=== PATIENT | female | born 1955 | race Caucasian/White ===

== ENCOUNTER 2020-03-28 22:37 | Inpatient (IN) | payer MEDICARE, OTHER, SELFPAY ==
[2020-03-28 22:42] VITALS: BP 126/69; PULSE 119; RESP 16; TEMP 37.7; O2SAT 93; BMI 22.9
[2020-03-29] VITALS (10 sets, daily range): BP systolic 91–114; BP diastolic 35–56; PULSE 73–97; RESP 15–18; TEMP 36.7–38; O2SAT 93–99
--- NOTE | 2020-03-29 03:10 | CT_ITS ---
EXAMINATION: CT ABDOMEN AND PELVIS WITH CONTRAST CLINICAL INFORMATION: Right lower quadrant and right upper quadrant pain. Fever. COMPARISON: None TECHNIQUE: Multidetector volumetric images were obtained from the superior aspect of the liver through the pubic symphysis following administration 85 mL of Omnipaque 350 intravenous contrast. Sagittal and coronal reformatted images were obtained on the technologist's workstation. Oral contrast: No This CT examination was performed using dose optimization techniques as appropriate, variously including the following: *Automated exposure control *Adjustment of mA and/or kV according to patient size (this includes techniques or standardized protocols for targeted exams where dose is matched to indication/reason for exam; i.e. extremities or head) *Use of iterative reconstruction technique DLP: 524 mGy-cm FINDINGS: LUNG BASES: There is bibasilar atelectasis. The visualized cardiac structures are unremarkable. LIVER, GALLBLADDER, AND BILIARY TREE: The liver is normal in size, shape, and attenuation. No focal hepatic lesion or biliary ductal dilatation is present. There are no radiopaque gallstones seen. There is wall thickening, measuring 0.4 cm at portions. There is significant pericholecystic fluid. PANCREAS: Unremarkable. SPLEEN: Unremarkable. ADRENAL GLANDS: Unremarkable. KIDNEYS AND URETERS: The kidneys are normal in size, shape, and attenuation. No hydronephrosis, hydroureter, or calculi seen. No perinephric stranding. There is a left upper pole cyst measuring 1.2 cm. BLADDER: Unremarkable. GASTROINTESTINAL TRACT: The stomach is unremarkable. Normal caliber small bowel. There is no obstruction. No colonic wall thickening or acute inflammatory changes. There is a normal appendix. No free air. Minimal fluid along the right paracolic gutter extending from the region of the gallbladder. ABDOMINAL WALL: Small amount of fluid in the right pelvic region. This could be associated with the canal of N[place]. LYMPH NODES: Normal. VASCULAR: Normal caliber aorta with mild atherosclerotic calcification. Retroaortic left renal vein. PELVIC VISCERA: The uterus is not seen. No adnexal mass. OSSEOUS STRUCTURES: Mild degenerative changes in the spine. No acute or suspicious osseous abnormality. CT/CT abdomen pelvis w con IMPRESSION: Abnormal appearance of the gallbladder. Although there are no radiopaque stones identified. The gallbladder is distended with wall thickening and prominent fluid surrounding. This is suspicious for acute cholecystitis. Normal appendix.
--- NOTE | 2020-03-29 03:15 | ED_ITS ---
HPI - General Adult General Chief complaint: Abdominal Pain Stated complaint: Abdominal pain Time Seen by Provider: 03/29/20 02:59 Source: patient Mode of arrival: ambulatory Limitations: no limitations History of Present Illness HPI narrative: 64-year-old female who presents emergency department for evaluation of right-sided abdominal pain, fever and shaking chills x3 days. Patient states that 3 days prior at around 5:00 p.m. she ate chips to be fine toast. At around 10:00 p.m. she then developed right-sided abdominal pain. She states that the pain is a constant, dull ache which waxes and wanes in intensity and is 10/10 at its worst. She states that she has had decreased appetite and has had associated nausea with no vomiting. The pain does radiate to her back. She states that she has developed fever and shaking chills and she is concerned that she may have a problem with her gallbladder therefore she came to the emergency department for evaluation. She states that her pain is currently 10/10 at its worst. She has a history of GERD but she states that this pain is different than her GERD pain. The patient has a history of hernia repair and SANDRA/BSO secondary to fibroids. Related Data Previous Rx's Medication Instructions Recorded prednisone 10 mg tablet 10 mg PO .COMPLEX #45 tab 01/03/20 Allergies Allergy/AdvReac Type Severity Reaction Status Date / Time acetaminophen [Percocet] Allergy Unknown rash Verified 07/01/17 00:00 oxycodone [Percocet] Allergy Unknown rash Verified 07/01/17 00:00 Review of Systems Review of Systems: Yes all other systems are reviewed and are negative Neurologic: Reports Abnormal speech present [facility] Past Medical History [facility] Narrative: Patient has history of GERD, kidney stones, hernia repair, LANE BSO. She denies tobacco, alcohol and drug use. Social History Social History Alcohol intake: never Smoking Status: Never smoker Use of substances other than those prescribed or required for medical reasons: No Advance Directives: No Physical Exam Vital Signs: Vital Signs: Last Vital Signs Temp 100.4 F 03/29/20 02:58 Pulse 85 03/29/20 05:42 Resp 16 03/29/20 08:00 BP 98/35 L 01/09/21 05:42 Pulse Ox 94 03/29/20 05:42 Body Mass Index 22.9 Const: General: cooperative and healthy appearing Orientation/consciousness: oriented to person and oriented to place Limitations: no limitations HENMT: Head: Yes normal to inspection, Yes normocephalic and Yes atraumatic Ears: external ears normal General nose exam: Normal external nose present Face and sinus: Yes normal facial exam Mouth: Normal oral and palatal mucosa present Throat: Yes posterior oropharynx normal Eyes: Periorbital: periorbital findings normal Eyelids: Yes eyelids normal Conjunctivae: conjunctivae normal Sclerae: sclerae normal Corneas: corneas normal Pupils: Equal, round and reactive pupils present Direct Ophthalmoscopy: normal light reflex Neck: Neck: Yes full ROM, Yes no lymphadenopathy, Yes no meningeal signs, Yes trachea midline and Yes supple Chest: Chest palpation & inspection: normal inspection of the chest and normal palpation of entire chest wall Resp: Effort & Inspection: normal respiratory effort and able to speak in complete sentences Auscultation: clear to auscultation bilaterally Cardio: Rate: regular rate Rhythm: regular rhythm Heart sounds: S1 normal heart sound present, S2 normal heart sound present and no murmurs GI: Inspection: Yes normal to inspection Palpation (GI): Soft to palpation, Tenderness to palpation present (GI) (Moderate to severe) in the RLQ and in the RUQ, Guarding due to palpation present (GI) (Moderate to severe) in the RLQ and in the RUQ, not rigid and No hepatosplenomegaly present : General: Yes no CVA tenderness Back/Spine/Pelvis: Back: no CVA tenderness Cervical Spine: normal cervical lordosis Thoracic/Lumbar Spine: thoracic and lumbar spine normal to inspection Skin: Lesions: no lesions Rashes: no rashes Wounds: no wounds Neuro: General: oriented to person, oriented to place and no meningeal signs Cranial nerves: Yes Equal, round and reactive pupils present Cognition (Neuro): normal cognition Speech: Abnormal speech present Motor exam (neuro): 5/5 motor strength present throughout Extrem: General: Yes normal to inspection and Yes full ROM Psych: Appearance: well kempt Mental Status: mental status grossly normal Speech and movement: Normal speech and movement present Affect: normal affect Attitude: cooperative Thought process: Normal thought process present Thought content: Normal thought content present Course Course Course Narrative: 64-year-old female who presents emergency department for evaluation right-sided abdominal pain x3 days with loss of appetite and fever with chills times 24 hours. Physical examination did reveal a temperature of 100.2? F orally. She has an elevated pulse of 119. She meets SIRS criteria. I did order an abdominal pain workup in septic workup to include CT scan of the abdomen pelvis with IV contrast. The patient will be treated with normal saline 30 cc per kg bolus and Zosyn 3.375 mg IV. 0738: The patient's CT scan revealed dilated gallbladder with gallbladder wall thickening and pericholecystic fluid with no gallstones seen. I did discuss the patient's presentation findings with the physician assistant auto center manager covering the surgical service and he recommended getting an ultrasound. The ultrasound revealed cholelithiasis with gallbladder wall thickening and pericholecystic fluid consistent with acute cholecystitis. I will discuss this finding with the covering surgical group. 0825: I did discuss the patient's presentation with the physician assistant auto center manager covering the surgical group and the patient will be admitted for further treat ment. The admitting attending is Dr. Manning. Medical Decision Making Lab Data Result diagrams: 03/29/20 03:36 03/29/20 03:36 Labs: Lab Results 03/29/20 03/29/20 03/29/20 Range/Units 03:35 03:36 03:36 WBC 15.7 H (4.8-10.8) X10*3/uL RBC 4.67 (4.20-5.50) X10*6/uL Hgb 13.0 (12.0-16.0) g/dl Hct 39.8 (37-47) % MCV 85.2 (80-98) fL MCH 27.8 (27.0-33.0) pg MCHC 32.7 (31.0-35.0) g/dl RDW 13.1 (11.0-16.0) % Plt Count 149 L (160-400) X10*3/uL MPV 11.2 (9.4-12.3) fL Immature Gran % (Auto) 0.5 H (0.0-0.4) % Neut % (Auto) 87.0 H (45-73) % Lymph % (Auto) 5.7 L (20-40) % [place] % (Auto) 6.3 (2-11) % Eos % (Auto) 0.3 (0-4) % Baso % (Auto) 0.2 (0-2) % Lymph # (Auto) 0.9 L (1.2-4.9) X10*3/uL [place] # (Auto) 1.0 (0.1-1.2) X10*3/uL Eos # (Auto) 0.0 (0.0-0.4) X10*3/uL Baso # (Auto) 0.0 (0.0-0.2) X10*3/uL Abs Immat Gran (auto) 0.08 H (0.00-0.03) X10*3/uL Absolute Neuts (auto) 13.7 H (2.0-8.3) X10*3/uL Absolute Nucleated RBC 0.000 (0.0-0.012) X10*3/uL Nucleated RBC % (auto) 0.0 (0.0-0.2) /100WBC Sodium 137 (135-145) mmol/L Potassium 3.4 (3.3-5.1) mmol/l Chloride 101 (96-108) mmol/L Carbon Dioxide 24 (22-29) mmol/L Anion Gap 15 (12-20) BUN 22 H (9-16) mg/dL Creatinine 0.84 (0.5-1.4) mg/dL Estim Creat Clear Calc 59.2 Estimated GFR > 60 Random Glucose 106 (60-115) mg/dL Lactic Acid 0.7 (0.5-2.0) mmol/L Calcium 8.8 (8.4-10.2) mg/dL Total Bilirubin 1.7 H (0.0-1.0) mg/dL Direct Bilirubin 0.9 H (0.0-0.5) mg/dL AST 31 (5-31) U/L ALT 45 H (0-31) U/L Alkaline Phosphatase 144 H (39-117) U/L Total Protein 6.6 (6.5-8.0) g/dL Albumin 3.9 (3.5-5.0) g/dL Lipase 17 (8-78) U/L Urine Color Urine Appearance Urine pH (5.0-8.0) Ur Specific [place] (1.005-1.025) Urine Protein (NEG-TRACE) MG/DL Urine Glucose (UA) (NEG) MG/DL Urine Ketones (NEG) MG/DL Urine Blood (NEG) Urine Nitrite (NEG) Ur Leukocyte Esterase (NEG) Urine RBC (0) /HPF Urine WBC (0-4) /HPF Ur Squamous Epith Cells /LPF Urine Bacteria /LPF Hyaline Casts /LPF Granular Casts /LPF Urine Mucus /LPF 03/29/20 Range/Units 03:36 WBC (4.8-10.8) X10*3/uL RBC (4.20-5.50) X10*6/uL Hgb (12.0-16.0) g/dl Hct (37-47) % MCV (80-98) fL MCH (27.0-33.0) pg MCHC (31.0-35.0) g/dl RDW (11.0-16.0) % Plt Count (160-400) X10*3/uL MPV (9.4-12.3) fL Immature Gran % (Auto) (0.0-0.4) % Neut % (Auto) (45-73) % Lymph % (Auto) (20-40) % [place] % (Auto) (2-11) % Eos % (Auto) (0-4) % Baso % (Auto) (0-2) % Lymph # (Auto) (1.2-4.9) X10*3/uL [place] # (Auto) (0.1-1.2) X10*3/uL Eos # (Auto) (0.0-0.4) X10*3/uL Baso # (Auto) (0.0-0.2) X10*3/uL Abs Immat Gran (auto) (0.00-0.03) X10*3/uL Absolute Neuts (auto) (2.0-8.3) X10*3/uL Absolute Nucleated RBC (0.0-0.012) X10*3/uL Nucleated RBC % (auto) (0.0-0.2) /100WBC Sodium (135-145) mmol/L Potassium (3.3-5.1) mmol/l Chloride (96-108) mmol/L Carbon Dioxide (22-29) mmol/L Anion Gap (12-20) BUN (9-16) mg/dL Creatinine (0.5-1.4) mg/dL Estim Creat Clear Calc Estimated GFR Random Glucose (60-115) mg/dL Lactic Acid (0.5-2.0) mmol/L Calcium (8.4-10.2) mg/dL Total Bilirubin (0.0-1.0) mg/dL Direct Bilirubin (0.0-0.5) mg/dL AST (5-31) U/L ALT (0-31) U/L Alkaline Phosphatase (39-117) U/L Total Protein (6.5-8.0) g/dL Albumin (3.5-5.0) g/dL Lipase (8-78) U/L Urine Color ERICKSON Urine Appearance HAZY Urine pH 5.5 (5.0-8.0) Ur Specific [place] 1.025 (1.005-1.025) Urine Protein 2+ H (NEG-TRACE) MG/DL Urine Glucose (UA) NEG (NEG) MG/DL Urine Ketones 15 (NEG) MG/DL Urine Blood 1+ H (NEG) Urine Nitrite NEG (NEG) Ur Leukocyte Esterase 1+ H (NEG) Urine RBC 0-2 (0) /HPF Urine WBC 15-29 H (0-4) /HPF Ur Squamous Epith Cells 3+ /LPF Urine Bacteria 2+ /LPF Hyaline Casts 0-2 /LPF Granular Casts 0-2 /LPF Urine Mucus 2+ /LPF Discharge Plan Discharge Clinical Impression: Acute cholecystitis due to biliary calculus Patient Disposition: Admitted As Inpatient
[2020-03-29 03:45] LABS: Appearance Urine HAZY; Basophils Percent Auto 0.2 % (0-2); Color Urine AMBER; Eosinophils Percent Auto 0.3 % (0-4); Glucose Urine UA NEG (NEG); Hematocrit 39.8 % (37-47); Imm Gran Abs Auto 0.08 X10*3/uL (0.00-0.03); Imm Gran Pct Auto 0.5 % (0.0-0.4); Leukocyte Esterase Urine 1+ (NEG); Lymphocytes Absolute Auto 0.9 X10*3/uL (1.2-4.9); Lymphocytes Percent Auto 5.7 % (20-40); MANUAL DIFF FLAG NO; Mean Corpuscular HGB Conc 32.7 g/dl (31.0-35.0); Mean Corpuscular Hemoglobin 27.8 pg (27.0-33.0); Mean Corpuscular Volume 85.2 fL (80-98); Mean Platelet Volume 11.2 fL (9.4-12.3); Monocytes Percent Auto 6.3 % (2-11); Neutrophils Absolute Auto 13.7 X10*3/uL (2.0-8.3); Nitrite Urine NEG (NEG); PH 5.5 (5.0-8.0); Platelet Count 149 X10*3/uL (160-400); Red Blood Count 4.67 X10*6/uL (4.20-5.50); Red Cell Distribution Width 13.1 % (11.0-16.0); Specific Gravity - Urine 1.025 (1.005-1.025); Urine Blood 1+ (NEG); Urine Ketones 15 MG/DL (NEG); Urine Protein 2+ MG/DL (NEG-TRACE); White Blood Count 15.7 X10*3/uL (4.8-10.8)
[2020-03-29 03:52] LABS: RBC Urine 0-2 /HPF (0); Squamous Epithelial Cell Urine 3+ /LPF
[2020-03-29 03:53] LABS: Bacteria Urine 2+ /LPF; Granular Casts Urine 0-2 /LPF; Hyaline Casts Urine 0-2 /LPF; Mucus Urine 2+ /LPF
[2020-03-29] MEDS: Acetaminophen 325 MG TABLET 650 MG PO (03:54)
[2020-03-29] MEDS: Piperacillin Sodium/Tazobactam 4.5 GM in 0.9 % Sodium Chloride 100 ML IV (03:55)
[2020-03-29] MEDS: Ketorolac Tromethamine 30 MG/ML VIAL IVPUSH (03:55)
[2020-03-29] MEDS: ondansetron HCL 4 MG/2 ML VIAL IVPUSH ×2 (03:55→20:58)
[2020-03-29] MEDS: 0.9 % Sodium Chloride 1,877.88 ML 1877.88 ML IVCONT (03:57)
[2020-03-29 04:09] LABS: Lactic Acid 0.7 mmol/L (0.5-2.0)
[2020-03-29 04:14] LABS: Alanine Aminotransferase 45 U/L (0-31); Albumin Level 3.9 g/dL (3.5-5.0); Alkaline Phosphatase 144 U/L (39-117); Anion Gap 15 (12-20); Aspartate Amino Transferase 31 U/L (5-31); Bilirubin Direct 0.9 mg/dL (0.0-0.5); Bilirubin Total 1.7 mg/dL (0.0-1.0); Blood Urea Nitrogen 22 mg/dL (9-16); Calcium 8.8 mg/dL (8.4-10.2); Carbon Dioxide 24 mmol/L (22-29); Chloride 101 mmol/L (96-108); Creatinine Clr Calc Pharmacy 59.2; Estimated Glomerular Filt Rate > 60; Glucose Random 106 mg/dL (60-115); Lipase 17 U/L (8-78); Potassium 3.4 mmol/l (3.3-5.1); Sodium 137 mmol/L (135-145); Total Protein 6.6 g/dL (6.5-8.0)
[2020-03-29] MEDS: iohexoL 350 MG/ML 100 ML INFUS..BTL 85 ML IV (04:37)
--- NOTE | 2020-03-29 05:33 | US_ITS ---
EXAMINATION: US ABDOMEN LIMITED CLINICAL INFORMATION: Right upper quadrant pain.. COMPARISON: CT from today. TECHNIQUE: Real-time imaging of the right upper quadrant abdominal viscera. FINDINGS: PANCREAS: Normal. LIVER: Normal. The liver is normal in size. The liver contour is normal. Parenchymal echogenicity is normal. No focal hepatic lesion. There is no intrahepatic biliary duct dilatation seen. GALLBLADDER: Gallstones are seen in the gallbladder lumen. Gallbladder wall thickening measuring 0.4 cm with small amount of pericholecystic fluid. Echogenic bile also noted in the gallbladder lumen. The patient describes tenderness in this area. COMMON BILE DUCT: Normal in caliber measuring 0.6 cm in diameter. RIGHT KIDNEY: Upper pole 1 cm calculus with associated calcification at the periphery. No hydronephrosis. The kidney measures 11.6 cm in maximum dimension. FREE FLUID: None. US/US abdomen limited IMPRESSION: Cholelithiasis with gallbladder wall thickening and pericholecystic fluid, consistent with acute cholecystitis.
--- NOTE | 2020-03-29 07:13 | PC.NURSE ---
medications at 0310 had duplicate orders for zosyn and zofran. pt did receive on dose of each.
--- NOTE | 2020-03-29 07:38 | PC.NURSE ---
plan for surgery consult. pt reports ruq/flank pain. pain increasing. plan for morphine. pt aware and denies having any questions.
[2020-03-29] MEDS: Morphine Sulfate 4 MG/ML CARTRIDGE IVPUSH ×2 (08:00→20:58)
--- NOTE | 2020-03-29 08:05 | PM.CNGS ---
History of Present Illness Consult details Consult date: 03/29/20 <CHERRY Rodriguez - Last Filed: 03/29/20 11:34> Reason for consult: abdominal pain <CHERRY Rodriguez Last Filed: 03/29/20 11:34> Requesting physician: Randall Jones <CHERRY Rodriguez - Last Filed: 03/29/20 11:34> Narrative: 64 yo female presented to the ED over night for ~ 2 days of progressively worsening ABD pain. She states the pain began evening around 10 pm following a meal of chipped beef. She was awoken by the pain at around 2 am with reflux symptoms (burning) in the chest and vomited. Following the emesis she felt better and was able to fall back to sleep. On Tuesday morning the pain had returned and she reported fevers and chills. The pain, which she describes as sharp, burning, began in the epigastric region and is now radiating to the back. She described the pain at its worse as a 10/10. Laying on her back made the pain worse. She denies diarrhea. She presented to the [facility] ED at around 10 pm Tuesday evening. In the ED she received pain medication, ABX, anti-emetic and fluids. She states now her pain is only when the ABD is pressed on. She denies any N/V. Surgery was consulted for further evaluation following CT and U/S evidence of possible cholecystitis. Significant labs: WBC 15.7, BUN 22, ALT 45, Alk Phos 144, Tbili 1.7, PLT 149. She had a temp up to 100.4. Remaining labs and vital signs WNL. <CHERRY Rodriguez - Last Filed: 03/29/20 11:34> Review of Systems Review of Systems: Yes all other systems are reviewed and are negative <CHERRY Rodriguez Last Filed: 03/29/20 11:34> Gastrointestinal: Gastrointestinal: Reports abdominal pain (Epigastric and Right-side), Reports dyspepsia, Reports nausea and Reports vomiting <CHERRY Rodriguez Last Filed: 03/29/20 11:34> Neurologic: Reports Abnormal speech present <CHERRY Rodriguez Last Filed: 03/29/20 11:34> PMFSH Social History Social History: Social History Alcohol intake: never Smoking Status: Never smoker Use of substances other than those prescribed or required for medical reasons: No Advance Directives: No <CHERRY Rodriguez Last Filed: 03/29/20 11:34> Meds Allergies/Adverse reactions: Allergies Allergy/AdvReac Type Severity Reaction Status Date / Time acetaminophen [Percocet] Allergy Unknown rash Verified 07/01/17 00:00 oxycodone [Percocet] Allergy Unknown rash Verified 07/01/17 00:00 <CHERRY Rodriguez - Last Filed: 03/29/20 11:34> Physical Exam Vital Signs: Vital Signs: Last Vital Signs Temp 100.4 F 03/29/20 02:58 Pulse 85 03/29/20 05:42 Resp 16 03/29/20 08:00 BP 98/35 L 03/29/20 05:42 Pulse Ox 94 03/29/20 05:42 Body Mass Index 22.9 <CHERRY Rodriguez Last Filed: 03/29/20 11:34> Const: General: no acute distress and awake <CHERRY Rodriguez Last Filed: 03/29/20 11:34> Nutritional Appearance: average body habitus <CHERRY Rodriguez Last Filed: 03/29/20 11:34> Orientation/consciousness: oriented to person, oriented to place and oriented to time <CHERRY Rodriguez Last Filed: 03/29/20 11:34> Chest: Chest palpation & inspection: normal inspection of the chest <CHERRY Rodriguez Last Filed: 03/29/20 11:34> Resp: Effort & Inspection: normal respiratory effort and able to speak in complete sentences <CHERRY Rodriguez Last Filed: 03/29/20 11:34> Auscultation: clear to auscultation bilaterally <CHERRY Rodriguez Last Filed: 03/29/20 11:34> Cardio: Jugular venous distension: no JVD <CHERRY Rodriguez Last Filed: 03/29/20 11:34> Heart sounds: S1 normal heart sound present and S2 normal heart sound present <CHERRY Rodriguez - Last Filed: 03/29/20 11:34> GI: Inspection: Yes normal to inspection <CHERRY Rodriguez - Last Filed: 03/29/20 11:34> Palpation (GI): Soft to palpation and Tenderness to palpation present (GI) in the epigastrum, in the RLQ and in the RUQ <CHERRY Rodriguez - Last Filed: 03/29/20 11:34> Auscultation: Hypoactive bowel sounds present <CHERRY Rodriguez - Last Filed: 03/29/20 11:34> Skin: General skin exam: no rashes or lesions noted <CHERRY Rodriguez - Last Filed: 03/29/20 11:34> Neuro: General: oriented to person, oriented to place and oriented to time <CHERRY Rodriguez - Last Filed: 03/29/20 11:34> Speech: Abnormal speech present <CHERRY Rodriguez - Last Filed: 03/29/20 11:34> Extrem: General: Yes no calf tenderness <CHERRY Rodriguez - Last Filed: 03/29/20 11:34> Psych: Appearance: grossly normal <CHERRY Rodriguez - Last Filed: 03/29/20 11:34> Mental Status: mental status grossly normal <CHERRY Rodriguez Last Filed: 03/29/20 11:34> Results Labs Result diagrams: : 03/29/20 03:36 03/29/20 03:36 <CHERRY Rodriguez - Last Filed: 03/29/20 11:34> Labs: Abnormal lab results 03/29/20 03/29/20 03/29/20 Range/Units 03:36 03:36 03:36 WBC 15.7 H (4.8-10.8) X10*3/uL Plt Count 149 L (160-400) X10*3/uL Immature Gran % (Auto) 0.5 H (0.0-0.4) % Neut % (Auto) 87.0 H (45-73) % Lymph % (Auto) 5.7 L (20-40) % Lymph # (Auto) 0.9 L (1.2-4.9) X10*3/uL Abs Immat Gran (auto) 0.08 H (0.00-0.03) X10*3/uL Absolute Neuts (auto) 13.7 H (2.0-8.3) X10*3/uL BUN 22 H (9-16) mg/dL Total Bilirubin 1.7 H (0.0-1.0) mg/dL Direct Bilirubin 0.9 H (0.0-0.5) mg/dL ALT 45 H (0-31) U/L Alkaline Phosphatase 144 H (39-117) U/L Urine Protein 2+ H (NEG-TRACE) MG/DL Urine Blood 1+ H (NEG) Ur Leukocyte Esterase 1+ H (NEG) Urine WBC 15-29 H (0-4) /HPF Short CBC 03/29/20 Range/Units 03:36 WBC 15.7 H (4.8-10.8) X10*3/uL Hgb 13.0 (12.0-16.0) g/dl Hct 39.8 (37-47) % Plt Count 149 L (160-400) X10*3/uL BMP 03/29/20 03:36 Sodium 137 Potassium 3.4 Chloride 101 Carbon Dioxide 24 BUN 22 H Creatinine 0.84 Calcium 8.8 Liver Function 03/29/20 Range/Units 03:36 Total Bilirubin 1.7 H (0.0-1.0) mg/dL Direct Bilirubin 0.9 H (0.0-0.5) mg/dL AST 31 (5-31) U/L ALT 45 H (0-31) U/L Alkaline Phosphatase 144 H (39-117) U/L Albumin 3.9 (3.5-5.0) g/dL Urine 03/29/20 Range/Units 03:36 Urine Color ERICKSON Urine Appearance HAZY Urine pH 5.5 (5.0-8.0) Ur Specific [place] 1.025 (1.005-1.025) Urine Protein 2+ H (NEG-TRACE) MG/DL Urine Glucose (UA) NEG (NEG) MG/DL All other labs normal. <CHERRY Rodriguez - Last Filed: 03/29/20 11:34> Assessment and Plan (1) Acute cholecystitis: Problem details: 64 yo female with progressively worsening ABD and elevated WBC, low grade fever. CT and U/S suggestive of cholecystitis <CHERRY Rodriguez - Last Filed: 03/29/20 11:34> Status: Acute <CHERRY Rodriguez - Last Filed: 03/29/20 11:34> Admit to Med Surg NPO Pain mgmt IVF Will likely need a HIDA scan to determine if the GB has any filling deficits prior to any invasive interventions. <CHERRY Rodriguez - Last Filed: 03/29/20 11:34> . General Surgery Attending - Lorie Manning M.D. Patient was evaluated and examined at the bedside with Mr. Brian Montaño PA-C. I confirm above findings and plan as documented. Patient has acute cholecystitis. Will treat with IV antibiotics and admit to our svc. Will need lap cholecystectomy before discharge. <Adelina Manning MD - Last Filed: 03/29/20 13:54>
[2020-03-29] MEDS: 0.9 % Sodium Chloride 1,000 ML 100 ML IVCONT ×2 (09:36→18:25)
[2020-03-29 09:55] LABS: COVID-19 Test Negative (Negative)
[2020-03-29] MEDS: Piperacillin Sodium/Tazobactam 3.375 GM in 0.9 % Sodium Chloride 50 ML IV ×2 (14:49→20:59)
[2020-03-30] VITALS (10 sets, daily range): BP systolic 118–161; BP diastolic 49–86; PULSE 71–86; RESP 18–79; TEMP 36.4–37.3; O2SAT 91–98
[2020-03-30] MEDS: 0.9 % Sodium Chloride Flush 3 ML SYRINGE IVFLUSH ×2 (02:00→15:53)
[2020-03-30] MEDS: Piperacillin Sodium/Tazobactam 3.375 GM in 0.9 % Sodium Chloride 50 ML IV ×4 (03:10→20:25)
[2020-03-30] MEDS: 0.9 % Sodium Chloride 1,000 ML 100 ML IVCONT ×2 (04:50→15:51)
[2020-03-30] MEDS: Ketorolac Tromethamine 15 MG/ML VIAL 30 MG IV ×2 (06:37→18:26)
[2020-03-30 10:13] LABS: Basophils Percent Auto 0.2 % (0-2); Eosinophils Absolute Auto 0.1 X10*3/uL (0.0-0.4); Eosinophils Percent Auto 1.1 % (0-4); Hematocrit 35.1 % (37-47); Hemoglobin 10.9 g/dl (12.0-16.0); Imm Gran Abs Auto 0.12 X10*3/uL (0.00-0.03); Lymphocytes Absolute Auto 1.1 X10*3/uL (1.2-4.9); Lymphocytes Percent Auto 8.3 % (20-40); MANUAL DIFF FLAG NO; Mean Corpuscular HGB Conc 31.1 g/dl (31.0-35.0); Mean Corpuscular Hemoglobin 27.3 pg (27.0-33.0); Mean Platelet Volume 11.2 fL (9.4-12.3); Monocytes Absolute Auto 1.1 X10*3/uL (0.1-1.2); Monocytes Percent Auto 8.6 % (2-11); Neutrophils Absolute Auto 10.2 X10*3/uL (2.0-8.3); Neutrophils Percent Auto 80.8 % (45-73); Platelet Count 159 X10*3/uL (160-400); Red Blood Count 3.99 X10*6/uL (4.20-5.50); Red Cell Distribution Width 13.2 % (11.0-16.0); White Blood Count 12.6 X10*3/uL (4.8-10.8)
[2020-03-30 10:54] LABS: Anion Gap 18 (12-20); Blood Urea Nitrogen 23 mg/dL (9-16); Calcium 8.4 mg/dL (8.4-10.2); Carbon Dioxide 18 mmol/L (22-29); Chloride 109 mmol/L (96-108); Creatinine Clr Calc Pharmacy 67.2; Estimated Glomerular Filt Rate > 60; Glucose Random 63 mg/dL (60-115); Potassium 3.4 mmol/l (3.3-5.1); Sodium 142 mmol/L (135-145)
--- NOTE | 2020-03-30 10:59 | HO.ANESPROP2 ---
[facility] Past Medical History Medical History (Updated 03/30/20 @ 11:00 by Yossi Langford) GERD (gastroesophageal reflux disease) Nephrolithiasis Surgical History Surgical History (Updated 03/30/20 @ 11:01 by Yossi Langford) H/O hysterectomy with oophorectomy Social History Social History Alcohol intake: never Smoking Status: Never smoker Use of substances other than those prescribed or required for medical reasons: No Advance Directives: No Meds Allergies Allergy/AdvReac Type Severity Reaction Status Date / Time acetaminophen [Percocet] Allergy Unknown rash Verified 07/01/17 00:00 oxycodone [Percocet] Allergy Unknown rash Verified 07/01/17 00:00 Home Medications Medication Instructions Recorded Confirmed Type No Known Home Meds 03/30/20 03/30/20 History Exam Exam Date and Time: March 30, 2020 1059 Height,Weight and Vital Signs: Height 5 ft 5 in Weight 62.596 kg Last Vital Signs Temp 99.6 F 03/29/20 22:37 Pulse 82 03/30/20 06:00 Resp 79 H 03/30/20 06:00 BP 118/76 03/30/20 06:00 Pulse Ox 97 03/30/20 06:00 Pertinent Lab Results Pertinent Lab Results: Laboratory Tests 03/29/20 03/29/20 03/29/20 03:35 03:36 03:36 WBC 15.7 H RBC 4.67 Hgb 13.0 Hct 39.8 MCV 85.2 MCH 27.8 MCHC 32.7 RDW 13.1 Plt Count 149 L MPV 11.2 Immature Gran % (Auto) 0.5 H Neut % (Auto) 87.0 H Lymph % (Auto) 5.[address] [place] % (Auto) 6.3 Eos % (Auto) 0.3 Baso % (Auto) 0.2 Lymph # (Auto) 0.[address] [place] # (Auto) 1.0 Eos # (Auto) 0.0 Baso # (Auto) 0.0 Abs Immat Gran (auto) 0.08 H Absolute Neuts (auto) 13.7 H Absolute Nucleated RBC 0.000 Nucleated RBC % (auto) 0.0 Sodium 137 Potassium 3.4 Chloride 101 Carbon Dioxide 24 Anion Gap 15 BUN 22 H Creatinine 0.84 Estim Creat Clear Calc 59.2 Estimated GFR > 60 Random Glucose 106 Lactic Acid 0.7 Calcium 8.8 Total Bilirubin 1.7 H Direct Bilirubin 0.9 H AST 31 ALT 45 H Alkaline Phosphatase 144 H Total Protein 6.6 Albumin 3.9 Lipase 17 Urine Color Urine Appearance Urine pH Ur Specific [place] Urine Protein Urine Glucose (UA) Urine Ketones Urine Blood Urine Nitrite Ur Leukocyte Esterase Urine RBC Urine WBC Ur Squamous Epith Cells Urine Bacteria Hyaline Casts Granular Casts Urine Mucus COVID-19 (ARIELLE) COVID-19 Clin Com 03/29/20 03/29/20 03/30/20 03:36 09:29 10:07 WBC 12.6 H RBC 3.99 L Hgb 10.9 L Hct 35.1 L MCV 88.0 MCH 27.3 MCHC 31.1 RDW 13.2 Plt Count 159 L MPV 11.2 Immature Gran % (Auto) 1.0 H Neut % (Auto) 80.8 H Lymph % (Auto) 8.[address] % (Auto) 8.6 Eos % (Auto) 1.1 Baso % (Auto) 0.2 Lymph # (Auto) 1.[address] # (Auto) 1.1 Eos # (Auto) 0.1 Baso # (Auto) 0.0 Abs Immat Gran (auto) 0.12 H Absolute Neuts (auto) 10.2 H Absolute Nucleated RBC 0.000 Nucleated RBC % (auto) 0.0 Sodium Potassium Chloride Carbon Dioxide Anion Gap BUN Creatinine Estim Creat Clear Calc Estimated GFR Random Glucose Lactic Acid Calcium Total Bilirubin Direct Bilirubin AST ALT Alkaline Phosphatase Total Protein Albumin Lipase Urine Color ERICKSON Urine Appearance HAZY Urine pH 5.5 Ur Specific Villalba 1.025 Urine Protein 2+ H Urine Glucose (UA) NEG Urine Ketones 15 Urine Blood 1+ H Urine Nitrite NEG Ur Leukocyte Esterase 1+ H Urine RBC 0-2 Urine WBC 15-29 H Ur Squamous Epith Cells 3+ Urine Bacteria 2+ Hyaline Casts 0-2 Granular Casts 0-2 Urine Mucus 2+ COVID-19 (ARIELLE) Negative COVID-19 Clin Com See Note 03/30/20 10:07 WBC RBC Hgb Hct MCV MCH MCHC RDW Plt Count MPV Immature Gran % (Auto) Neut % (Auto) Lymph % (Auto) [place] % (Auto) Eos % (Auto) Baso % (Auto) Lymph # (Auto) [place] # (Auto) Eos # (Auto) Baso # (Auto) Abs Immat Gran (auto) Absolute Neuts (auto) Absolute Nucleated RBC Nucleated RBC % (auto) Sodium 142 Potassium 3.4 Chloride 109 H Carbon Dioxide 18 L Anion Gap 18 BUN 23 H Creatinine 0.74 Estim Creat Clear Calc 67.2 Estimated GFR > 60 Random Glucose 63 D Lactic Acid Calcium 8.4 Total Bilirubin Direct Bilirubin AST ALT Alkaline Phosphatase Total Protein Albumin Lipase Urine Color Urine Appearance Urine pH Ur Specific [place] Urine Protein Urine Glucose (UA) Urine Ketones Urine Blood Urine Nitrite Ur Leukocyte Esterase Urine RBC Urine WBC Ur Squamous Epith Cells Urine Bacteria Hyaline Casts Granular Casts Urine Mucus COVID-19 (ARIELLE) COVID-19 Clin Com Airway Mallampati Class: II TM Dist: >3cm Neck ROM: Full Heart: RRR Lungs: CTA Assessment and Plan Assessment Anesthesia Assessment: Anesthesia Plan Discussed and Chart Reviewed Final Anesthetic Review NPO: Yes ASA Class: I and Emergency Final Preanesthetic Review: No Changes in Pt Med Stat, Meds/Allgs Chart Reviewed, Consent Obtained/Reviewed and Anes Risks/Benef Reviewed Patient Risk: Low Procedure Risk: Intermediate Anesthetic Plan Anesthetic Plan: GA Disposition: Standard PACU
--- NOTE | 2020-03-30 14:15 | P.BOP_ITS ---
Brief Operative Note Date of Service: 03/30/20 Surgeon: Adleina Manning MD Preoperative Diagnosis Acute cholecystitis Postoperative Diagnosis Acute gangrenous cholecystitis Procedure Laparoscopic cholecystectomy Anesthesia General Anesthesia, Endotracheal Intubation Surgeon Lorie Manning M.D. [employer] Brian Montaño PA-C Indication Cholecystitis by clinical history, U/S and blood labs Findings Gangrenous gallbladder wall with some pustular pockets in pericystic plane EBL 250 cc's Other Details STEPHEN placed in subhepatic space Estimated blood loss (mL): 250
[2020-03-30] MEDS: fentaNYL citrate/PF 100 MCG/2 ML VIAL 50 MCG IVPUSH (14:45)
[2020-03-30] MEDS: Morphine Sulfate 4 MG/ML CARTRIDGE IVPUSH (20:29)
[2020-03-31] VITALS (7 sets, daily range): BP systolic 117–155; BP diastolic 60–84; PULSE 66–85; RESP 15–19; TEMP 36–37.2; O2SAT 90–95
[2020-03-31] MEDS: Piperacillin Sodium/Tazobactam 3.375 GM in 0.9 % Sodium Chloride 50 ML IV ×4 (01:26→20:19)
[2020-03-31] MEDS: 0.9 % Sodium Chloride 1,000 ML 100 ML IVCONT ×2 (01:27→12:30)
--- NOTE | 2020-03-31 03:15 | OP_ITS ---
SURGEON: Adelina Manning MD PREOPERATIVE DIAGNOSIS: Acute cholecystitis. POSTOPERATIVE DIAGNOSIS: Acute gangrenous cholecystitis. PROCEDURE PERFORMED: Laparoscopic cholecystectomy. ESTIMATED BLOOD LOSS: COMPLICATIONS: ANESTHESIA: General anesthesia, endotracheal intubation. ASSISTANTS: SPECIMENS: INDICATION: The patient is a 64-year-old female who presented with abdominal pain, ultrasound demonstrated gallstones as well as thickened gallbladder wall consistent with cystitis. FINDINGS: On the ultrasound and CT scan, the gallbladder wall was found to be quite thickened and as it turned out, the patient has partial necrotic gallbladder wall through and through. There are some patches of through and through complete wall gangrene throughout the gallbladder. There were some pustular fluid in the plain between the gallbladder and perihepatic tissue. DESCRIPTION OF PROCEDURE: Following the informed consent, the patient was taken to the operating room where she underwent routine induction of general anesthesia and endotracheal intubation. The abdomen was prepped and draped in the usual sterile fashion. We made a skin incision just below the umbilicus. With dissection through the layers, we entered the abdomen and established the Skip port with pneumoperitoneum. We then placed a 5 mm port in the subxiphoid area and additional 2 ports of also 5 mm size in the right lateral down th wall in the subcostal space. With these four ports, we evaluated the liver, which was found to be normal in the dome. The gallbladder was quite distended, and there was inflamed pericolonic tissue and omentum tissue, they were tightly adherent to the gallbladder fundus. Using blunt dissection with DG graspers, we carefully developed the plane between the gallbladder wall and the omental tissue, and we were successful in freeing up the gallbladder. The gallbladder was tight, distended, and we used an aspirator catheter through the lateral port to aspirate the gallbladder completely, so that we can grasp the tip of the fundus and retract the cephalad. The anterior gallbladder wall, the free wall portion was quite thickened and redundant as the gallbladder has stretched quite a bit. The gallbladder wall itself had several patched where it was through and through gangrenous. As we were freeing up the gallbladder wall before, there were some pustular collected fluid that were surrounding the gallbladder wall, and it is apparent that there were through and through gallbladder wall necrosis and a pustular drainage in the plain between the gallbladder and the surrounding tissue. We irrigated with copious amount of normal saline and suctioned some of the pustular packets of fluid. We then began our dissection of the base of the gallbladder. Ever so carefully, tissue by tissue and layer by layer, we freed up the lateral wall of the infundibulum and the cystic duct. Due to inflammation and also oozing from the surrounding tissue in the omentum that was still oozing from our initial blunt dissection, there were some oozing of the venous blood. Despite this, we were able to circumscribe the cystic duct and the infundibulum by creating a window between the medial aspect of the cystic duct and perihepatic space. We then continued to dissect both the medial and lateral aspect of the gallbladder dividing across the attachments using hook cautery, again carefully single layer by attachment. After some 30 minutes to 45 minutes of removing the gallbladder from the gallbladder fossa in the proximal third of the gallbladder, more precisely in the lower third of the gallbladder, we were unable to completely ascertain that the cyst duct was continuous with the gallbladder and that there was no anatomic aberration. It should be mentioned that we had already identified the cystic artery without any problem and divided it with the metal clip on the proximal side and both the cautery across the distal side. With the gallbladder thus mobilized, we were ready to divide it. We placed a 10 mm metal clip between the neck of the gallbladder and the cystic duct, and then we divided just at the neck of the gallbladder at this junction with the cystic duct. The gallbladder was then lifted up towards the cephalad direction, and this allowed us to visualize the redundant cyst duct. We then used an Endoloop which was passed through the subxiphoid port to ligate the cystic duct at its midsection, while away from its junction with a common bile duct. The ligation with the Endoloop was executed quite satisfactorily. We then applied an extra metal clip across the ligature for additional security. The rest of the gallbladder was then removed from the base of the subhepatic space, first it took a great deal of time because of the gangrenous inflammatory response. After about 15 to 20 minutes, we were able to completely remove the gallbladder, and this was placed in a bag and removed from the abdomen and sent to pathology. We were then able to irrigate with copious amount of normal saline. Although there was no active oozing because of gallbladder fossa, and was so inflamed, we decided to place 2 Surgicel pieces in the gallbladder fossa. Also, we placed a Favian Arce drainage tube in the subhepatic space and brought it out through the lateral port. We then irrigated further with copious amount of normal saline. All ports were removed. Pneumoperitoneum was reversed, and we closed the fascial layer at the umbilicus using interrupted 0 Vicryl sutures, and the rest of the skin incision using Monocryl sutures. Steri-Strips and dry dressing were applied. The patient was reversed and extubated. The patient was taken back to the recovery in satisfactory condition. OVEN BAKER: Brian Purvis, PAC. MD FADI Tiwari/ÁNGEL / [id number] MTDD
[2020-03-31] MEDS: Ketorolac Tromethamine 15 MG/ML VIAL 30 MG IV ×4 (05:23→18:09)
--- NOTE | 2020-03-31 07:31 | PM.PNGS ---
Subjective Subjective Date of Service: 03/31/20 Interval history: Feels much improved this morning, decreased abdominal pain, no nausea or vomiting. Coughing up some phlegm. Chills reported during the night. Physical Exam Vital Signs: Vital Signs: Last Vital Signs Temp 96.8 F 03/31/20 03:44 Pulse 66 03/31/20 03:44 Resp 19 03/31/20 03:44 BP 125/84 03/31/20 03:44 Pulse Ox 94 03/31/20 03:44 Body Mass Index 22.9 Const: General: cooperative, healthy appearing, comfortable and no acute distress Eyes: Sclerae: sclerae normal Resp: Other: breathing comfortably on room air without respiratory distress GI: Other: soft, nondistended, incisions clean and intact. Bilious discharge from the STEPHEN drain. Some leakage around the drain site. Skin: Other: warm and dry, normal color Extrem: Other: no edema Progress Note: A&P Assessment and plan (1) Acute cholecystitis due to biliary calculus: Status: Acute Assessment and Plan: POD #1 s/p laparoscopic cholecystectomy for acute gangrenous cholecystitis. She feels much improved today with decreased abdominal pain. Patient on a regular diet. Continue Zosyn, follow drain output. Encouraged ambulation today. Fall Risk Details Current Medications: Current Medications Generic Name Dose Route Start Last Admin Trade Name Freq PRN Reason Stop Dose Admin Fentanyl 50 mcg 03/30/20 11:50 03/30/20 14:45 Fentanyl Citrate/Pf 100 Mcg/2 Ml Vial IVPUSH 25 mcg Q5M PRN Administration Pain, Moderate (Pain Scale 4-6 Hydromorphone HCl 0.5 mg 03/30/20 11:50 Hydromorphone Hcl 0.5 Mg/0.5 Ml Syringe IVPUSH Q5M PRN Pain, Severe (Pain Scale 7-10) Sodium Chloride 1,000 mls @ 100 mls/hr 03/29/20 08:15 03/31/20 02:05 Ns IVCONT 100 mls/hr .Q10H KAYE Infusion Piperacillin Sod/Tazobactam 50 mls @ 100 mls/hr 03/29/20 14:00 03/31/20 02:05 Sod 3.375 gm/ Sodium Chloride IV Infused Q6H KAYE Infusion Promethazine HCl 12.5 mg/ 50.5 mls @ 202 mls/hr 03/30/20 11:50 Sodium Chloride IV ONCE PRN Nausea and Vomiting Ketorolac Tromethamine 30 mg 03/30/20 06:15 03/31/20 05:23 Ketorolac Tromethamine 15 Mg/Ml Vial IV 30 mg Q6H KAYE Administration Morphine Sulfate 4 mg 03/29/20 08:15 03/30/20 20:29 Morphine Sulfate 4 Mg/Ml Cartridge IVPUSH 4 mg Q4H PRN Administration Pain, Severe (Pain Scale 7-10) Ondansetron HCl 4 mg 03/29/20 08:09 03/29/20 20:58 Ondansetron Hcl 4 Mg/2 Ml Vial IVPUSH 4 mg Q8H PRN Administration Nausea and Vomiting Sodium Chloride 3 ml 03/29/20 16:00 03/30/20 22:43 0.9 % Sodium Chloride Flush 3 Ml Syringe IVFLUSH Not Given QSHIFT KAYE Time Spent With Patient Time: Total time spent is greater than 50% in coordination of care (as documented) at patient's floor/unit and/or counseling patient: Time with patient: 15 - 24 minutes
[2020-03-31] MEDS: 0.9 % Sodium Chloride Flush 3 ML SYRINGE IVFLUSH ×2 (08:38→20:19)
--- NOTE | 2020-03-31 11:11 | MHC.CM.PN ---
Addendum entered by Jacy So RN 03/31/20 14:55: REFERRAL PLACED WITH [facility] PER PT REQUEST. Addendum entered by Jacy So RN 03/31/20 14:19: IF PT DISCHARGES WITH STEPHEN DRAIN PT WILL NEED [facility], CM WILL REFER TO PT PREFERENCE. Original Note: IMM 03/31/20, DISCHARGE PLAN HOME SELF-CARE, TO TRANSPORT. CM MET WITH PT WHO IS ALERT AND ORIENTED, PT INDEPENDENT WITH ALL CARE AT HOME PRIOR TO HOSPITAL STAY, PT DENIES USE OF DME OR HOME SERVICES, PT DENIES NEED FOR HOME SERVICES. PT VERIFIED PCP DR BONNER HOWEVER REPORTS SHE HAS NOT SEEN HIM IN A FEW YEARS AND SUSANNAH BEEN GOING TO URGENT CARE DUE TO IT BEING SO HARD TO GET IN TO SEE HER DOCTOR, PT DECLINES CHANGING PCP AT THIS TIME, PT VERIFIED PHARMACY LISTED [facility]ENTER [facility]. PT REPORTS SHE DOES HAVE A HEALTH CARE PROXY WHO IS HER AND ALTERNATE IS HER SON, CM REQUESTED COPY BE BROUGHT IN OR MAILED TO CM. HCP- AUGUST BOLTON () [phone] ALTERNATE: FAUSTINO RAMOSALL (SON) [phone] PT CELL PHONE [phone]
--- NOTE | 2020-03-31 14:02 | HO.POSTANES ---
Post Anesthesia Evaluation Post Anesthesia Evaluation Vital Signs: Vital Signs Temp Pulse Resp BP Pulse Ox 03/31/20 12:00 96.9 F 72 18 117/60 94 03/31/20 08:00 97.5 F 70 18 129/63 92 03/31/20 03:44 96.8 F 66 19 125/84 94 Anesthesia: General Endotracheal-GETA Mental Status: Awake Pain Control: Satisfactory Nausea/Vomiting: None Hydration: Adequate Anesthesia-Related Issues: No Anes. Related Issues
--- NOTE | 2020-03-31 14:59 | MHC.CM.PN ---
CM COMMUNICATED WITH PT'S SURGEON WHO WILL SIGN VNA ORDERS SECONDARY TO PT NOT SEEING HER PCP IN APPROXIMATELY 2 YRS.
[2020-04-01] VITALS (7 sets, daily range): BP systolic 140–158; BP diastolic 63–73; PULSE 78–87; RESP 16–18; TEMP 36.1–37.3; O2SAT 93–99
--- NOTE | 2020-04-01 | NM_ITS ---
EXAMINATION: BILIARY TRACT IMAGING STUDY CLINICAL INFORMATION: Increasing bilirubin, evidence of bile leak follow-up status post laparoscopic cholecystectomy 03/31/2020.. COMPARISON: No previous biliary scan is available for comparison. Abdominal ultrasound and CT scan of the abdomen and pelvis both dated 03/29/2020 are available for comparison. The studies were performed prior to the patient's cholecystectomy.. TECHNIQUE: Serial gamma scintillation camera images were obtained over the abdomen for a total observation period of approximately 3.5 hours following the intravenous administration of 5.0 mCi Tc-99m Mebrofenin. FINDINGS: There is mildly diminished concentration in the liver and slow clearance of the cardiac blood pool on the initial images. Some residual radiopharmaceutical is visualized throughout the study in the region of the injection site in the right arm. At 60 minutes there is no visualization of biliary activity and some urinary excretion is visualized. During a second hour of imaging, there continues to be abnormal retention of activity in the liver the beginning at approximately 100 minutes post injection and subsequently, some small bowel activity is visualized. On delayed images obtained at approximately 3.5 hours there is continued abnormal retention of activity in the liver but more prominent diffuse small bowel activity is visualized. On the images obtained at 2 hours, a draining bag present was put in the [id number] and imaged adjacent to the liver. No activity in the drainage bag is visualized. Activity lateral to the patient's right side is persistent retained activity at the injection site in the right arm. Consistent with prior cholecystectomy, the gallbladder is not visualized. NM/NM hepatobiliary wo pharm IMPRESSION: Abnormal study. The diffuse persistence of activity in the liver throughout the study is probably due to severe diffuse hepatocellular disease. While this can also be seen with complete common bile duct obstruction, the visualization of some small bowel activity is evidence of patency of the common bile duct. Correlation with ultrasonography to rule out biliary duct dilatation may be of additional diagnostic value, but there is no suggestion of the latter on this study. There is no evidence of a biliary leak or accumulation of biliary activity in the patient's drainage bag.
[2020-04-01] MEDS: Ketorolac Tromethamine 15 MG/ML VIAL 30 MG IV ×4 (00:13→17:54)
[2020-04-01] MEDS: Piperacillin Sodium/Tazobactam 3.375 GM in 0.9 % Sodium Chloride 50 ML IV ×3 (00:15→14:58)
[2020-04-01] MEDS: diphenhydrAMINE HCL 25 MG TABLET PO (00:53)
[2020-04-01] MEDS: 0.9 % Sodium Chloride 1,000 ML 50 ML IVCONT (04:49)
[2020-04-01 06:38] LABS: MANUAL DIFF FLAG NO
[2020-04-01 06:47] LABS: Basophils Percent Auto 0.4 % (0-2); Eosinophils Absolute Auto 0.3 X10*3/uL (0.0-0.4); Eosinophils Percent Auto 2.3 % (0-4); Hematocrit 34.1 % (37-47); Hemoglobin 10.9 g/dl (12.0-16.0); Imm Gran Abs Auto 0.23 X10*3/uL (0.00-0.03); Imm Gran Pct Auto 2.1 % (0.0-0.4); Lymphocytes Absolute Auto 1.1 X10*3/uL (1.2-4.9); Lymphocytes Percent Auto 10.4 % (20-40); Mean Corpuscular Hemoglobin 27.2 pg (27.0-33.0); Mean Platelet Volume 11.5 fL (9.4-12.3); Monocytes Absolute Auto 1.2 X10*3/uL (0.1-1.2); Monocytes Percent Auto 10.6 % (2-11); Neutrophils Percent Auto 74.2 % (45-73); Platelet Count 221 X10*3/uL (160-400); Red Blood Count 4.01 X10*6/uL (4.20-5.50); Red Cell Distribution Width 13.3 % (11.0-16.0); White Blood Count 10.8 X10*3/uL (4.8-10.8)
[2020-04-01 07:16] LABS: Alanine Aminotransferase 167 U/L (0-31); Alkaline Phosphatase 556 U/L (39-117); Aspartate Amino Transferase 166 U/L (5-31); Bilirubin Direct 3.6 mg/dL (0.0-0.5); Bilirubin Total 4.3 mg/dL (0.0-1.0); Total Protein 5.5 g/dL (6.5-8.0)
[2020-04-01] MEDS: 0.9 % Sodium Chloride Flush 3 ML SYRINGE IVFLUSH ×2 (07:32→17:00)
--- NOTE | 2020-04-01 07:52 | PM.PNGS ---
Subjective Subjective Date of Service: 04/01/20 <Celestina Moyer PA-C - Last Filed: 04/01/20 07:56> 04/01/20 <Efren Shah MD - Last Filed: 04/01/20 08:31> Interval history: Feels much better this morning. C/o back pain and inability to sleep. Otherwise, not much abd pain. Tolerating solid diet. <Celestina Moyer PA-C - Last Filed: 04/01/20 07:56> Physical Exam Vital Signs: Vital Signs: Last Vital Signs Temp 97.8 F 04/01/20 02:48 Pulse 78 04/01/20 02:48 Resp 16 04/01/20 02:48 BP 140/63 H 04/01/20 02:48 Pulse Ox 94 04/01/20 02:48 Body Mass Index 22.9 <Celestina Moyer PA-C - Last Filed: 04/01/20 07:56> Const: General: comfortable, no acute distress and alert <Celestina Moyer PA-C - Last Filed: 04/01/20 07:56> Orientation/consciousness: patient oriented x3 <DELFIN Ford Last Filed: 04/01/20 07:56> Eyes: Sclerae: sclerae normal <DELFIN Ford Last Filed: 04/01/20 07:56> Resp: Effort & Inspection: normal respiratory effort <Celestina Moyer PA-C - Last Filed: 04/01/20 07:56> GI: Other: STEPHEN drain with serosanguineous drainage <Celestina Moyer PA-C - Last Filed: 04/01/20 07:56> Inspection: Yes distended (mild) and Yes incision (clean) <DELFIN Ford Last Filed: 04/01/20 07:56> Palpation (GI): Soft to palpation, nontender, no guarding, not rigid and No Rebound tenderness present <DELFIN Ford Last Filed: 04/01/20 07:56> Skin: General skin exam: no rashes or lesions noted <DELFIN Ford Last Filed: 04/01/20 07:56> Neuro: General: patient oriented x3 <DELFIN Ford Last Filed: 04/01/20 07:56> Extrem: General: Yes no clubbing, cyanosis or edema <Celestina Moyer PA-C - Last Filed: 04/01/20 07:56> Progress Note: A&P Assessment and plan (1) Acute cholecystitis due to biliary calculus: Problem details: POD #2 s/p lap CCY <Celestina Moyer PA-C - Last Filed: 04/01/20 07:56> Status: Acute <DELFIN Ford Last Filed: 04/01/20 07:56> Assessment and Plan: Comfortable and tolerating solid diet. VSS. Abd exam benign, incisions clean. STEPHEN drain output yesterday was bilious in nature- today appears more serosanguineous but her LFTs are significantly elevated. Will consult GI. Cont STEPHEN drain for now. Cont abx. <Celestina Moyer PA-C - Last Filed: 04/01/20 07:56> (2) Hyperbilirubinemia: Status: Acute <DELFIN Ford Last Filed: 04/01/20 07:56> Assessment and Plan: Patient is much more comfortable today but does complain of inability to sleep possibly due to her bed. She took some Benadryl without significant improvement. Abdominal exam is benign however the STEPHEN still appears bilious to me. Findings suggestive of a bile leak although this may also be due to leakage from the gallbladder liver bed. Elevated bilirubin is concerning for retained stone or bile duct injury. Agree with GI consultation. Will obtain HIDA scan today. Continue to trend LFTs. <Efren Shah MD - Last Filed: 04/01/20 08:31> Fall Risk Details Current Medications: Current Medications Generic Name Dose Route Start Last Admin Trade Name Freq PRN Reason Stop Dose Admin Sodium Chloride 1,000 mls @ 50 mls/hr 03/29/20 08:15 04/01/20 04:49 Ns IVCONT 50 mls/hr .Q20H KAYE Administration Piperacillin Sod/Tazobactam 50 mls @ 100 mls/hr 03/29/20 14:00 04/01/20 07:32 Sod 3.375 gm/ Sodium Chloride IV 100 mls/hr Q6H AKYE Administration Ketorolac Tromethamine 30 mg 03/30/20 06:15 04/01/20 04:50 Ketorolac Tromethamine 15 Mg/Ml Vial IV 30 mg Q6H KAYE Administration Morphine Sulfate 4 mg 03/29/20 08:15 03/30/20 20:29 Morphine Sulfate 4 Mg/Ml Cartridge IVPUSH 4 mg Q4H PRN Administration Pain, Severe (Pain Scale 7-10) Ondansetron HCl 4 mg 03/29/20 08:09 03/29/20 20:58 Ondansetron Hcl 4 Mg/2 Ml Vial IVPUSH 4 mg Q8H PRN Administration Nausea and Vomiting Sodium Chloride 3 ml 03/29/20 16:00 04/01/20 07:32 0.9 % Sodium Chloride Flush 3 Ml Syringe IVFLUSH 3 ml QSHIFT KAYE Administration <Celestina Moyer PA-C - Last Filed: 04/01/20 07:56> Time Spent With Patient Time: Total time spent is greater than 50% in coordination of care (as documented) at patient's floor/unit and/or counseling patient: <Celestina Moyer PA-C - Last Filed: 04/01/20 07:56> Time with patient: 15 - 24 minutes <Celestina Moyer PA-C - Last Filed: 04/01/20 07:56>
--- NOTE | 2020-04-01 14:58 | PC.NURSE ---
unable to scan zosyne due to patient being off unit
[2020-04-01] MEDS: Zolpidem Tartrate 5 MG TABLET PO (21:07)
--- NOTE | 2020-04-02 | MR_ITS ---
EXAMINATION: MR ABDOMEN WITHOUT CONTRAST CLINICAL INFORMATION: Status post laparoscopic cholecystectomy March 30. Elevated liver function tests. Rule out common bile duct stone COMPARISON: CT 03/29/2020. Ultrasound 03/29/2020. Hepatobiliary scintigraphy 04/01/2020 TECHNIQUE: MR abdomen is performed without gadolinium contrast. Heavily T2-weighted MRCP images were obtained FINDINGS: LUNG BASES: Small bilateral pleural effusions and bibasilar consolidation are present LIVER: The liver is normal in size and signal. No hepatic steatosis is seen. No focal cystic or solid mass is present. GALLBLADDER: Gallbladder is surgically absent. There is a small amount of amorphous fluid seen in the gallbladder fossa, not unexpected in the setting of recent prior cholecystectomy. No discrete collection to strongly suggest a biloma. Only trace perihepatic fluid is seen. No fluid along the right paracolic gutter BILIARY TREE: No intrahepatic biliary ductal dilation. The common bile duct is upper limits of normal in caliber, 6-7 mm in diameter. No intraluminal filling defects seen. PANCREAS: There is a bifurcation of the main pancreatic duct, series 5 image 15/20. The posterior pancreatic duct in the head of the pancreas is dilated to 6 mm. The pancreatic duct in the body and tail of the pancreas are normal. SPLEEN: Normal. Normal size. No focal lesion. ADRENAL GLANDS: Normal. No adrenal mass. KIDNEYS AND URETERS: Simple bilateral renal cysts. No hydronephrosis. LYMPHOVASCULAR STRUCTURES: Normal caliber aorta. IVC patent. No pathologically enlarged abdominal or retroperitoneal lymphadenopathy by size criteria OSSEOUS STRUCTURES: No acute or suspicious osseous abnormalities. Convex left lumbar scoliosis. No ascites. Postoperative changes of the right upper quadrant anterior abdominal wall. Mild to moderate anasarca. Right lateral approach surgical drain in place. MR/MR MRCP IMPRESSION: There is amorphous fluid in the gallbladder fossa in keeping with recent surgery. No discrete collection. Minimal perihepatic fluid with no fluid along the right paracolic gutter to suggest a bile leak or biloma. Common bile duct is upper limits of normal in caliber, 6-7 mm with no filling defects to suggest choledocholithiasis.
[2020-04-02] MEDS: 0.9 % Sodium Chloride Flush 3 ML SYRINGE IVFLUSH ×2 (00:45→08:21)
[2020-04-02] MEDS: Ketorolac Tromethamine 15 MG/ML VIAL 30 MG IV ×5 (00:45→23:51)
[2020-04-02 03:34] VITALS: BP 135/66; PULSE 80; RESP 16; TEMP 36.8; O2SAT 94
[2020-04-02] MEDS: Omeprazole 20 MG CAPSULE.DR PO (06:26)
[2020-04-02 07:17] LABS: Alanine Aminotransferase 149 U/L (0-31); Albumin Level 2.9 g/dL (3.5-5.0); Alkaline Phosphatase 551 U/L (39-117); Aspartate Amino Transferase 96 U/L (5-31); Bilirubin Direct 3.6 mg/dL (0.0-0.5); Bilirubin Total 4.5 mg/dL (0.0-1.0); Total Protein 5.3 g/dL (6.5-8.0)
[2020-04-02 08:00] VITALS: BP 155/71; PULSE 78; RESP 18; TEMP 37; O2SAT 92
--- NOTE | 2020-04-02 08:10 | PM.PNGS ---
Subjective Subjective Date of Service: 04/02/20 <Celestina Moyer PA-C - Last Filed: 04/02/20 08:18> 04/02/20 <Efren Shah MD - Last Filed: 04/02/20 10:18> Patient reports: no new complaints <DELFIN Ford Last Filed: 04/02/20 08:18> Interval history: Continues to feel well, abdominal pain is minimal. <Celestina Moyer PA-C - Last Filed: 04/02/20 08:18> Physical Exam Vital Signs: Vital Signs: Last Vital Signs Temp 98.6 F 04/02/20 08:00 Pulse 78 04/02/20 08:00 Resp 18 04/02/20 08:00 BP 155/71 H 04/02/20 08:00 Pulse Ox 92 04/02/20 08:00 Body Mass Index 22.9 <Celestina Moyer PA-C - Last Filed: 04/02/20 08:18> Const: General: healthy appearing, comfortable, no acute distress and alert <Celestina Moyer PA-C - Last Filed: 04/02/20 08:18> Orientation/consciousness: patient oriented x3 <DELFIN Ford Last Filed: 04/02/20 08:18> Eyes: Sclerae: sclerae normal <DELFIN Ford Last Filed: 04/02/20 08:18> Resp: Effort & Inspection: normal respiratory effort <Celestina Moyer PA-C - Last Filed: 04/02/20 08:18> Cardio: Rate: regular rate <DELFIN Ford Last Filed: 04/02/20 08:18> GI: Other: STEPHEN drain in place, output in tubing appears serous but bulb ?bilious <DELFIN Ford Last Filed: 04/02/20 08:18> Inspection: No distended and Yes incision (clean) <DELFIN Ford Last Filed: 04/02/20 08:18> Palpation (GI): Soft to palpation, nontender, no guarding and No Rebound tenderness present <Celestina Moyer, PA-C - Last Filed: 04/02/20 08:18> Skin: Other: normal color <Celestina ComfortDELFIN perez - Last Filed: 04/02/20 08:18> General skin exam: no rashes or lesions noted <Celestina DELFIN Moyer - Last Filed: 04/02/20 08:18> Neuro: General: patient oriented x3 <Celestina Moyer PA-C - Last Filed: 04/02/20 08:18> Extrem: General: Yes no clubbing, cyanosis or edema <Celestina Moyer PA-C - Last Filed: 04/02/20 08:18> Progress Note: A&P Assessment and plan (1) Hyperbilirubinemia: Status: Acute <Celestina ComfortDELFIN perez Last Filed: 04/02/20 08:18> (2) Acute cholecystitis due to biliary calculus: Problem details: POD #3 s/p lap CCY <Celestina Moyer PA-C - Last Filed: 04/02/20 08:18> Status: Acute <Celestina ComfortDELFIN perez Torin Last Filed: 04/02/20 08:18> Assessment and Plan: She feels well post op with minimal pain however LFTs remain elevated. HIDA scan yesterday- visualization of some small bowel activity, no evidence of a biliary leak. Abd exam benign. STEPHEN drain with ?bilious output. Awaiting GI input. Cont STEPHEN drain for now. ?F/u US to evaluate bile ducts. <Celestina Moyer PA-C - Last Filed: 04/02/20 08:18> Patient feels much improved today with minimal abdominal pain however her liver functions remain elevated. Abdominal exam is benign in Favian-Arce drainage is minimal dark/bilious appearing fluid. HIDA scan was reviewed reveals delayed excretion into the bile ducts but ventral activity in the small bowel. No activities noted in the Favian-Arce to indicate a bile leak. Agree with GI consultation for elevated transaminase and bilirubin levels. <Efren Shah MD - Last Filed: 04/02/20 10:18> Fall Risk Details Current Medications: Current Medications Generic Name Dose Route Start Last Admin Trade Name Freq PRN Reason Stop Dose Admin Ketorolac Tromethamine 30 mg 03/30/20 06:15 04/02/20 06:26 Ketorolac Tromethamine 15 Mg/Ml Vial IV 30 mg Q6H KAYE Administration Loratadine 10 mg 04/02/20 09:00 Loratadine 10 Mg Tablet PO DAILY KAYE Morphine Sulfate 4 mg 03/29/20 08:15 03/30/20 20:29 Morphine Sulfate 4 Mg/Ml Cartridge IVPUSH 4 mg Q4H PRN Administration Pain, Severe (Pain Scale 7-10) Omeprazole 20 mg 04/02/20 06:30 04/02/20 06:26 Omeprazole 20 Mg Capsule.Dr PO 20 mg DAILY@0630 [facility] Administration Ondansetron HCl 4 mg 03/29/20 08:09 03/29/20 20:58 Ondansetron Hcl 4 Mg/2 Ml Vial IVPUSH 4 mg Q8H PRN Administration Nausea and Vomiting Sodium Chloride 3 ml 03/29/20 16:00 04/02/20 00:45 0.9 % Sodium Chloride Flush 3 Ml Syringe IVFLUSH 3 ml QSHIFT KAYE Administration Zolpidem Tartrate 5 mg 04/01/20 16:18 04/01/20 21:07 Zolpidem Tartrate 5 Mg Tablet PO 5 mg BEDTIME PRN Administration Insomnia <Celestina Moyer PA-C - Last Filed: 04/02/20 08:18> Time Spent With Patient Time: Total time spent is greater than 50% in coordination of care (as documented) at patient's floor/unit and/or counseling patient: <Celestina Moyer PA-C - Last Filed: 04/02/20 08:18> Time with patient: 15 - 24 minutes <Celestina Moyer PA-C - Last Filed: 04/02/20 08:18>
[2020-04-02] MEDS: Loratadine 10 MG TABLET PO (08:19)
[2020-04-02] MEDS: Lactated Ringers 1,000 ML 80 ML IVCONT ×2 (08:34→20:48)
[2020-04-02 11:50] VITALS: BP 145/63; PULSE 77; RESP 18; TEMP 37.1; O2SAT 92
--- NOTE | 2020-04-02 12:12 | MHC.CM.PN ---
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 ACUTE CHOLECYSTITIS SECONDARY TO BILLIARY CALLUS, S/P TRENT CHAUDHARY. NOW POST OP DAY 3. MET WITH PATIENT TODAY SHE REPORTS FEELING BETTER TODAY WITH DECREASED AMOUNT OF PAIN J-GARCIA DRAIN (WITH SEROUS-BILIOUS PER DOCUMENTATION PATIENT HAD A HIDA SCAN 04/01/20 (REVEALS DELAyed excretion into the bile ducts but vmentral activity in the small bowel, gi consult called for persistent elevated transAMINASE AND BILIRUBIN LEVELS. CONTINUE WITH IV KETEROLAC Q6HRS PRN ORAL OMEPRAZOLE QD DISCHARGE PLAN HOME WITH NO SERVICES VS HOME WITH NEW REFERRAL TO THE [facility] FOR NRUSING IF THE J-P DRAIN REMAINS IN AT TIME OF THE DISCHARGE TRANSPOERTATION FAMILY PCP PATIENT TO CALL FOR POST HOSPITLA DISCHARGE FOLLOW UP )
[2020-04-02 15:51] VITALS: BP 146/62; PULSE 89; RESP 18; TEMP 36.4; O2SAT 93
[2020-04-02 20:00] VITALS: BP 120/65; PULSE 80; RESP 18; TEMP 37.1; O2SAT 93
--- NOTE | 2020-04-02 20:25 | PM.EVENT ---
Event Note Date of Service: 04/02/20 Event Note: GI consult Patient seen and examined earlier today, MRCP reviewed. No evidence of bile leak or CBD stone on images, however path report does note 2-10 mm stones and imaging could miss smaller stones. Liver appears structurally normal and she has no reason to have chronic liver disease. Tolerating diet without any unexpected post ccy discomfort. Elevated lfts could be related to cholecystitis, anesthesia, drugs (abx), or passed stone. As long as she is clinically doing well, can d/c in am and f/u lfts as outpatient. ERCP not indicated at this time.
[2020-04-02 23:33] VITALS: BP 165/80; PULSE 76; RESP 18; TEMP 37.1; O2SAT 94
[2020-04-03 03:22] VITALS: BP 151/69; PULSE 78; RESP 18; TEMP 37; O2SAT 97
[2020-04-03] MEDS: Omeprazole 20 MG CAPSULE.DR PO (05:43)
[2020-04-03] MEDS: Ketorolac Tromethamine 15 MG/ML VIAL 30 MG IV (05:43)
[2020-04-03 06:40] LABS: Alanine Aminotransferase 115 U/L (0-31); Alkaline Phosphatase 576 U/L (39-117); Aspartate Amino Transferase 56 U/L (5-31); Bilirubin Direct 1.7 mg/dL (0.0-0.5); Bilirubin Total 2.3 mg/dL (0.0-1.0); Total Protein 5.7 g/dL (6.5-8.0)
[2020-04-03] MEDS: 0.9 % Sodium Chloride Flush 3 ML SYRINGE IVFLUSH (07:39)
[2020-04-03] MEDS: Loratadine 10 MG TABLET PO (07:40)
[2020-04-03 07:53] VITALS: BP 164/74; PULSE 69; RESP 18; TEMP 37; O2SAT 93
--- NOTE | 2020-04-03 08:00 | PM.PNGS ---
Subjective Subjective Date of Service: 04/03/20 <Celestina Moyer PA-C - Last Filed: 04/03/20 08:05> 04/03/20 <Efren Shah MD - Last Filed: 04/03/20 14:07> Interval history: Feels well. Denies pain. Tolerating diet. Wants to go home. <Celestina Moyer PA-C - Last Filed: 04/03/20 08:05> Physical Exam Vital Signs: Vital Signs: Last Vital Signs Temp 98.6 F 04/03/20 07:53 Pulse 69 04/03/20 07:53 Resp 18 04/03/20 07:53 BP 164/74 H 04/03/20 07:53 Pulse Ox 93 04/03/20 07:53 Body Mass Index 22.9 <DELFIN Ford Last Filed: 04/03/20 08:05> Const: General: healthy appearing, comfortable, no acute distress and alert <Celestina Moyer PA-C - Last Filed: 04/03/20 08:05> Orientation/consciousness: patient oriented x3 <Celestina Moyer PA-C - Last Filed: 04/03/20 08:05> Eyes: Sclerae: sclerae normal <DELFIN Ford Last Filed: 04/03/20 08:05> Resp: Effort & Inspection: normal respiratory effort <Celestina Moyer PA-C - Last Filed: 04/03/20 08:05> Cardio: Rate: regular rate <EDLFIN Ford Last Filed: 04/03/20 08:05> GI: Other: STEPHEN with scanty serous drainage <DELFIN Ford Last Filed: 04/03/20 08:05> Inspection: No distended and Yes incision (clean, some ecchymosis at umbilicus incision) <DELFIN Ford Last Filed: 04/03/20 08:05> Palpation (GI): Soft to palpation, nontender and no guarding <DELFIN Ford Last Filed: 04/03/20 08:05> Skin: Other: normal color <Celestina KamaraDELFIN perez - Last Filed: 04/03/20 08:05> General skin exam: no rashes or lesions noted <Celestina KamaraDELFIN perez - Last Filed: 04/03/20 08:05> Neuro: General: patient oriented x3 <Celestina KamaraDELFIN perez - Last Filed: 04/03/20 08:05> Extrem: General: Yes no clubbing, cyanosis or edema <Celestina KamaraDELFIN perez - Last Filed: 04/03/20 08:05> Progress Note: A&P Assessment and plan (1) Hyperbilirubinemia: Status: Acute <Celesitna ComfortDELFIN perez - Last Filed: 04/03/20 08:05> Assessment and Plan: Patient feels well and denies any ongoing symptoms. STEPHEN output is minimal. MRCP evaluated in appreciate Dr. Toscano input. Patient tolerated her regular diet without nausea or vomiting. She denies abdominal pain. Will D/C STEPHEN and discharge to home. Agree with the above assessment and plan. <Efren Shah MD - Last Filed: 04/03/20 14:07> (2) Acute cholecystitis due to biliary calculus: Problem details: POD #4 s/p lap CCY <Celestina Moyer PA-C - Last Filed: 04/03/20 08:05> Status: Acute <Celestina KamaraDELFIN perez - Last Filed: 04/03/20 08:05> Assessment and Plan: Seen by GI yesterday, MRCP performed. No evidence of bile leak or CBD stone on images, liver appears structurally normal. LFTs now downtrending. Elevated LFTs likely related to cholecystitis itself. She feels well. Abd exam benign, STEPHEN with scanty drainage and removed. Stable for d/c to home today. F/u in office with Dr. Shah and Dr. Toscano. F/u LFTs ordered for Tuesday04/07/20. Patient comfortable with plan. <Celestina Moyer PA-C - Last Filed: 04/03/20 08:05> Fall Risk Details Current Medications: Current Medications Generic Name Dose Route Start Last Admin Trade Name Freq PRN Reason Stop Dose Admin Lactated Ringer's 1,000 mls @ 80 mls/hr 04/02/20 08:30 04/03/20 07:40 Lr IVCONT Infused .[id number] KAYE Infusion Ketorolac Tromethamine 30 mg 03/30/20 06:15 04/03/20 05:43 Ketorolac Tromethamine 15 Mg/Ml Vial IV 30 mg Q6H KAYE Administration Loratadine 10 mg 04/02/20 09:00 04/03/20 07:40 Loratadine 10 Mg Tablet PO 10 mg DAILY KAYE Administration Morphine Sulfate 4 mg 03/29/20 08:15 03/30/20 20:29 Morphine Sulfate 4 Mg/Ml Cartridge IVPUSH 4 mg Q4H PRN Administration Pain, Severe (Pain Scale 7-10) Omeprazole 20 mg 04/02/20 06:30 04/03/20 05:43 Omeprazole 20 Mg Capsule.Dr PO 20 mg DAILY@0630 KAYE Administration Ondansetron HCl 4 mg 03/29/20 08:09 03/29/20 20:58 Ondansetron Hcl 4 Mg/2 Ml Vial IVPUSH 4 mg Q8H PRN Administration Nausea and Vomiting Sodium Chloride 3 ml 03/29/20 16:00 04/03/20 07:39 0.9 % Sodium Chloride Flush 3 Ml Syringe IVFLUSH 3 ml QSHIFT KAYE Administration Zolpidem Tartrate 5 mg 04/01/20 16:18 04/01/20 21:07 Zolpidem Tartrate 5 Mg Tablet PO 5 mg BEDTIME PRN Administration Insomnia <Celestina Moyer PA-C - Last Filed: 04/03/20 08:05> Time Spent With Patient Time: Total time spent is greater than 50% in coordination of care (as documented) at patient's floor/unit and/or counseling patient: <Celestina Moyer PA-C - Last Filed: 04/03/20 08:05> Time with patient: 15 - 24 minutes <Celestina Moyer PA-C - Last Filed: 04/03/20 08:05>
[2020-04-03 08:22] LABS: COVID-19 Test Negative (Negative)
--- NOTE | 2020-04-03 09:28 | MHC.CM.PN ---
IMM 04/03/20, PT DISCHARGING HOME SELF-CARE WITH FOLLOW-UP WITH SURGICAL AND GI IN ONE WEEK, VNA NOT NECESSARY DUE TO DRAIN REMOVAL, TO TRANSPORT.
--- NOTE | 2020-04-03 13:19 | CONS_ITS ---
DATE OF SERVICE: 04/02/2020 REFERRING PHYSICIAN: Dr. Card REASON FOR CONSULTATION: Elevated liver function tests, status post laparoscopic cholecystectomy. HISTORY OF PRESENT ILLNESS: The patient is a pleasant 64-year-old woman who was admitted to the hospital on March 30 after presenting to the emergency room with complaints of abdominal pain. She was evaluated and found to have acute cholecystitis and subsequently underwent cholecystectomy on March 30, which showed a gangrenous gallbladder. She had a drain placed post procedure, and her drainage has been minimal. Liver function tests, however, were noted to be elevated with a total bilirubin of 4.3 on April 01, which increased slightly to 4.5 today. Preop, her a total bilirubin was 1.7. Transaminases have also been elevated, although they are slightly improved today. Pathology on her gallbladder showed gangrenous cholecystitis as well as 2 to 10 mm gallstones. No cholangiogram was obtained. Imaging studies have included CT scanning and ultrasound imaging, which have shown no common duct abnormalities. Postoperatively, she had a HIDA scan which showed diffuse persistence of activity in the liver, thought due to severe hepatocellular disease. There was visualization of small bowel activity, which was somewhat delayed and abnormal retention in the liver. The patient denies abdominal pain currently. She tolerated a diet today. She has no history of liver disease and does not drink alcohol excessively. In fact, she drinks hardly at all. There is no family history of liver disease. PAST MEDICAL HISTORY: Cholecystitis as above. She denies other medical or surgical illnesses. CURRENT MEDICATIONS: Her current medication list is reviewed in the chart. ALLERGIES: ACETAMINOPHEN AND OXYCODONE. FAMILY HISTORY: This is negative for liver disease. SOCIAL HISTORY: There is no current tobacco, alcohol, or substance abuse. REVIEW OF SYSTEMS: SKIN: No pruritus. HEENT: Negative. CARDIOPULMONARY: No shortness of breath or chest pain. GASTROINTESTINAL: As above. GENITOURINARY: Negative. NEUROPSYCHIATRIC: Negative. PHYSICAL EXAMINATION: GENERAL: Shows a pleasant female, sitting in bed. She has tolerated a solid diet. VITAL SIGNS: Reviewed and are stable. Temperature is 97.6. SKIN: Anicteric. HEENT: Shows no scleral icterus. NECK: Without lymphadenopathy or thyromegaly. LUNGS: Clear. HEART: Shows regular rate and rhythm. S1, S2. No murmur. ABDOMEN: Soft. There are healing incisions and drain with very minimal dark brown material. EXTREMITIES: Without edema. IMPRESSION: Elevated liver function tests. This could be due to a combination of anesthesia and her recent cholecystectomy as well as acute cholecystitis. Also possible would be antibiotics, which could cause elevations of her liver tests given the small stones noted on her pathology report in her gallbladder. It is possible she does have a retained common bile duct stone that is causing a partial obstruction, given the findings on HIDA scanning, I would recommend obtaining MR imaging and I discussed ERCP with her should this be necessary for removal of any stones seen at the time of MR imaging. If her MRI is negative and her liver function tests are improving, she could be discharged for outpatient monitoring. Thanks for asking me to see her. I will follow her in the hospital with you. MD AMA Stanley/ÁNGEL / [id number]
--- NOTE | 2020-04-03 14:07 | P.DS_ITS ---
DS: Providers Provider Date of Service: 04/03/20 Date of admission: 03/30/20 12:35 Primary care physician: Ivette Wang MD Consults: 04/02/20 07:29 Consult to Gastroenterology Routine Consulting Provider: Emory Toscano Reason for consultation: s/p lap CCY, hyperbilirubinemia, ?bile leak Has provider been notified: No DS: Diagnosis Discharge Diagnosis (1) Hyperbilirubinemia: Status: Acute (2) Acute cholecystitis due to biliary calculus: Status: Acute (3) S/P laparoscopic cholecystectomy: Status: Acute DS: Medications Discharge Medications Home Medications: Home Medications Medication Instructions Recorded Confirmed lansoprazole 30 mg PO DAILY 03/30/20 03/30/20 loratadine 10 mg PO DAILY 03/30/20 03/30/20 DS: Summary Hospital Course Hospital Course: BRIEF HPI: 64 yo female presented to the ED with complaints of 2 days of progressively worsening epigastric/RUQ ABD pain. She states the pain began evening around 10 pm following a meal of chipped beef. She was awoken by the pain at around 2 am with reflux symptoms and vomited. Following the emesis, she felt better and was able to fall back to sleep. On Tuesday morning the pain had returned and she reported fevers and chills. The pain is sharp, burning in nature and radiated to the back. In the ED, she was febrile with a WBC count of 15.7. CT abd/pelvis and ABD US showed cholelithiasis with gallbladder wall thickening and pericholecystic fluid, consistent with acute cholecystitis. She was admitted to the surgical service under Dr. Nikita Manning. She was kept NPO, on IVF and started on IV zosyn. It was recommended to proceed with laparoscopic cholecystectomy, possible open. She was added onto the OR schedule for that day. HOSPITAL COURSE: On 03/30/20, a laparoscopic cholecystectomy was performed by Dr. Nikita Manning without complication. The gallbladder was found to be partially necrotic with some patches of gangrene throughout the gallbladder and pustular fluid in the plain between the gallbladder and perihepatic tissue. A BHARGAVI drain was placed intraoperatively. The patient tolerated the procedure well and was admitted to the medical/surgical floor for observation. Zosyn was continued post operatively for a total of 3 days given the gangrene and purulent findings. The patient did fairly well post operatively but was found to have bilious drainage from her BHARGAVI drain on POD #1. Her LFTs were then obtained and they were trending up. A HIDA scan was performed which showed delayed excretion into the bile ducts but ventral activity in the small bowel, consistent with no CBD obstruction or bile duct leak. However her LFTs continued to worsen and therefore a GI consult was obtained. An MRCP was performed to r/o small CBD stone as the etiology which was negative. The elevated liver enzymes were thought to be secondary to the cholecystitis, medications or anesthesia. The began to downtrend the following day. The patient remained asymptomatic during this time with minimal pain and sarah ating a solid diet. Her abdomen was benign with appropriate post op tenderness, clean incisions. Her bhargavi output cleared and became scanty and was therefore removed 04/03/20. She was ready for discharge and was discharged to home on 04/03/20 in stable condition. She is to follow up with Dr. Shah and Dr. Toscano in 1 week. She is to have repeat LFTs drawn on 04/07/20. Time Spent with Patient Time attestation: Total time spent providing and/or coordinating discharge services: Discharge coordination time: Greater than 30 minutes Physical Exam Vital Signs: Vital Signs: Last Vital Signs Temp 98.6 F 04/03/20 07:53 Pulse 69 04/03/20 07:53 Resp 18 04/03/20 07:53 BP 164/74 H 04/03/20 07:53 Pulse Ox 93 04/03/20 07:53 Body Mass Index 22.9 Const: General: healthy appearing, comfortable, no acute distress and alert Orientation/consciousness: patient oriented x3 Eyes: Sclerae: sclerae normal Resp: Effort & Inspection: normal respiratory effort Cardio: Rate: regular rate GI: Inspection: No distended and Yes incision (clean) Palpation (GI): Soft to palpation and nontender Skin: Other: normal color General skin exam: no rashes or lesions noted Neuro: General: patient oriented x3 Extrem: General: Yes no clubbing, cyanosis or edema DS: Data Data Completed and Pending Completed studies during hospitalization [Text1]: Pending at discharge 03/30/20 14:00 Surgical [PTH] Routine Gallbladder, cholecystectomy: Gangrenous cholecystitis; cholelithiasis. Labs on day of discharge: Laboratory Tests 03/29/20 03/29/20 03/29/20 03:35 03:36 03:36 WBC 15.7 H RBC 4.67 Hgb 13.0 Hct 39.8 MCV 85.2 MCH 27.8 MCHC 32.7 RDW 13.1 Plt Count 149 L MPV 11.2 Immature Gran % (Auto) 0.5 H Neut % (Auto) 87.0 H Lymph % (Auto) 5.7 L [place] % (Auto) 6.3 Eos % (Auto) 0.3 Baso % (Auto) 0.2 Lymph # (Auto) 0.9 L [place] # (Auto) 1.0 Eos # (Auto) 0.0 Baso # (Auto) 0.0 Abs Immat Gran (auto) 0.08 H Absolute Neuts (auto) 13.7 H Absolute Nucleated RBC 0.000 Nucleated RBC % (auto) 0.0 Sodium 137 Potassium 3.4 Chloride 101 Carbon Dioxide 24 Anion Gap 15 BUN 22 H Creatinine 0.84 Estim Creat Clear Calc 59.2 Estimated GFR > 60 Random Glucose 106 Lactic Acid 0.7 Calcium 8.8 Total Bilirubin 1.7 H Direct Bilirubin 0.9 H AST 31 ALT 45 H Alkaline Phosphatase 144 H Total Protein 6.6 Albumin 3.9 Lipase 17 Urine Color Urine Appearance Urine pH Ur Specific [place] Urine Protein Urine Glucose (UA) Urine Ketones Urine Blood Urine Nitrite Ur Leukocyte Esterase Urine RBC Urine WBC Ur Squamous Epith Cells Urine Bacteria Hyaline Casts Granular Casts Urine Mucus COVID-19 ([facility]LE) COVID-19 Clin Com 03/29/20 03/29/20 03/30/20 03:36 09:29 10:07 WBC 12.6 H RBC 3.99 L Hgb 10.9 L Hct 35.1 L MCV 88.0 MCH 27.3 MCHC 31.1 RDW 13.2 Plt Count 159 L MPV 11.2 Immature Gran % (Auto) 1.0 H Neut % (Auto) 80.8 H Lymph % (Auto) 8.3 L [place] % (Auto) 8.6 Eos % (Auto) 1.1 Baso % (Auto) 0.2 Lymph # (Auto) 1.1 L [place] # (Auto) 1.1 Eos # (Auto) 0.1 Baso # (Auto) 0.0 Abs Immat Gran (auto) 0.12 H Absolute Neuts (auto) 10.2 H Absolute Nucleated RBC 0.000 Nucleated RBC % (auto) 0.0 Sodium Potassium Chloride Carbon Dioxide Anion Gap BUN Creatinine Estim Creat Clear Calc Estimated GFR Random Glucose Lactic Acid Calcium Total Bilirubin Direct Bilirubin AST ALT Alkaline Phosphatase Total Protein Albumin Lipase Urine Color [place] Urine Appearance HAZY Urine pH 5.5 Ur Specific [place] 1.025 Urine Protein 2+ H Urine Glucose (UA) NEG Urine Ketones 15 Urine Blood 1+ H Urine Nitrite NEG Ur Leukocyte Esterase 1+ H Urine RBC 0-2 Urine WBC 15-29 H Ur Squamous Epith Cells 3+ Urine Bacteria 2+ Hyaline Casts 0-2 Granular Casts 0-2 Urine Mucus 2+ COVID-19 ([facility]LE) Negative COVID-19 Clin Com See Note 03/30/20 04/01/20 04/01/20 10:07 06:06 06:06 WBC 10.8 RBC 4.01 L Hgb 10.9 L Hct 34.1 L MCV 85.0 MCH 27.2 MCHC 32.0 RDW 13.3 Plt Count 221 D MPV 11.5 Immature Gran % (Auto) 2.1 H Neut % (Auto) 74.2 H Lymph % (Auto) 10.4 L [place] % (Auto) 10.6 Eos % (Auto) 2.3 Baso % (Auto) 0.4 Lymph # (Auto) 1.1 L [place] # (Auto) 1.2 Eos # (Auto) 0.3 Baso # (Auto) 0.0 Abs Immat Gran (auto) 0.23 H Absolute Neuts (auto) 8.0 Absolute Nucleated RBC 0.000 Nucleated RBC % (auto) 0.0 Sodium 142 Potassium 3.4 Chloride 109 H Carbon Dioxide 18 L Anion Gap 18 BUN 23 H Creatinine 0.74 Estim Creat Clear Calc 67.2 Estimated GFR > 60 Random Glucose 63 D Lactic Acid Calcium 8.4 Total Bilirubin 4.3 H Direct Bilirubin 3.6 H AST 166 H ALT 167 H Alkaline Phosphatase 556 H D Total Protein 5.5 L Albumin 3.0 L D Lipase Urine Color Urine Appearance Urine pH Ur Specific [place] Urine Protein Urine Glucose (UA) Urine Ketones Urine Blood Urine Nitrite Ur Leukocyte Esterase Urine RBC Urine WBC Ur Squamous Epith Cells Urine Bacteria Hyaline Casts Granular Casts Urine Mucus COVID-19 ([facility]) COVID-19 Clin Com 04/02/20 04/02/20 04/03/20 06:03 06:03 05:50 WBC RBC Hgb Hct MCV MCH MCHC RDW Plt Count MPV Immature Gran % (Auto) Neut % (Auto) Lymph % (Auto) [place] % (Auto) Eos % (Auto) Baso % (Auto) Lymph # (Auto) [place] # (Auto) Eos # (Auto) Baso # (Auto) Abs Immat Gran (auto) Absolute Neuts (auto) Absolute Nucleated RBC Nucleated RBC % (auto) Sodium Potassium Chloride Carbon Dioxide Anion Gap BUN Creatinine Estim Creat Clear Calc Estimated GFR Random Glucose Lactic Acid Calcium Total Bilirubin Cancelled 4.5 H 2.3 H Direct Bilirubin Cancelled 3.6 H 1.7 H AST Cancelled 96 H 56 H ALT Cancelled 149 H 115 H Alkaline Phosphatase Cancelled 551 H 576 H Total Protein Cancelled 5.3 L 5.7 L Albumin Cancelled 2.9 L 3.0 L Lipase Urine Color Urine Appearance Urine pH Ur Specific [place] Urine Protein Urine Glucose (UA) Urine Ketones Urine Blood Urine Nitrite Ur Leukocyte Esterase Urine RBC Urine WBC Ur Squamous Epith Cells Urine Bacteria Hyaline Casts Granular Casts Urine Mucus COVID-19 ([facility]IELLE) COVID-GeoSentric 04/03/20 07:46 WBC RBC Hgb Hct MCV MCH MCHC RDW Plt Count MPV Immature Gran % (Auto) Neut % (Auto) Lymph % (Auto) [place] % (Auto) Eos % (Auto) Baso % (Auto) Lymph # (Auto) [place] # (Auto) Eos # (Auto) Baso # (Auto) Abs Immat Gran (auto) Absolute Neuts (auto) Absolute Nucleated RBC Nucleated RBC % (auto) Sodium Potassium Chloride Carbon Dioxide Anion Gap BUN Creatinine Estim Creat Clear Calc Estimated GFR Random Glucose Lactic Acid Calcium Total Bilirubin Direct Bilirubin AST ALT Alkaline Phosphatase Total Protein Albumin Lipase Urine Color Urine Appearance Urine pH Ur Specific [place] Urine Protein Urine Glucose (UA) Urine Ketones Urine Blood Urine Nitrite Ur Leukocyte Esterase Urine RBC Urine WBC Ur Squamous Epith Cells Urine Bacteria Hyaline Casts Granular Casts Urine Mucus COVID-19 ([facility]LE) Negative COVID-19 Clin Com See Note Discharge Plan Discharge Patient Disposition: Home, Self-Care Referrals: Emory Toscano [Physician] - 1 Week (hyperbilirubin after lap cholecystectomy) Efren Shah MD [Physician] - 1 Week Po,Ivette Marcos MD [Primary Care Provider] - Discharge Medications: Continued lansoprazole 30 mg Capsule,Delayed Release(Dr/Ec) 30 mg PO DAILY RF: 0 loratadine 10 mg Capsule 10 mg PO DAILY RF: 0 Discharge Orders: Discharge Order (Routine); Ordered 04/03/20 Ordered By: Efren Shah Diet: low fat, low cholesterol Activity on Discharge: No heavy lifting Discharge Date/Time: 04/03/20 10:25 Other Ambulatory Orders: Liver Panel (Routine) Timeframe: [id number] Facility: [facility] - Location: Laboratory Ordered By: Celestina Moyer Activity Restrictions/Additional Instructions: If the incision area is tender, you may apply an ice pack for short intervals (No more than 20 minutes on, followed by at least 20 minutes off). Do not apply heat. Do not use creams, lotions, or topical antibiotics unless instructed to do so by your surgeon. These can cause infection or allergic reaction. Ok to shower. You have steri strips (small white cloth strips) covering your incision- these will fall off ~1 week. Call Your Doctor If: -Your temperature exceeds 101.5? F -You experience excessive pain or swelling -You have an unexpected reaction to medication -You have excessive bleeding -You experience continued vomiting/nausea -Your incision begins to separate -Your incision shows signs of infection such as increased redness, swelling, excessive pain, drainage (light blood or clear fluid is normal) or heat Visit Report Forms: Patient Portal Discharge page Care Plan Goals: Return to baseline health and activity following recovery period; drain removal. Health Concerns: Acute calculous cholecystitis, s/p laparoscopic cholecystectomy, bile leak Plan of Treatment: Observation, drain care, discharge to home with follow up in office.
== END 2020-04-03 10:25 | disposition home or self-care (01) | DRG 419 ==
LOC: HO.ED 03-29 08:25 → HO.S3 03-30 13:47
PROVIDERS: Physician Assistant Surgical; Surgery; Admitting Provider Surgery; Emergency Provider Emergency Medicine Emergency Medical Services; PCP Internal Medicine; Visit Provider Surgery
PROC: 0FT44ZZ Resection of Gallbladder, Percutaneous Endoscopic Approach (ICD-10-PCS; CPT 47562; principal; 2020-03-30 11:00)
DX: K80.42 Calculus of bile duct with acute cholecystitis without obstruction (principal); K82.A1 Gangrene of gallbladder in cholecystitis; K21.9 Gastro-esophageal reflux disease without esophagitis; Z20.828 Contact with and (suspected) exposure to other viral communicable diseases; Z88.5 Allergy status to narcotic agent; Z88.6 Allergy status to analgesic agent; Z79.899 Other long term (current) drug therapy
CPT/HCPCS: 36415; 74177; 74181; 76705; 78226; 80048; 80076; 81001; 83605; 83690; 85025; 87040; 87086; 87635; 88304; 96365; 96375; 96376; 99285; A9537; J1100; J1885; J2250; J2270; J2405; J2543; J3010; Q0163; Q9967

== ENCOUNTER 2020-04-07 10:10 | Outpatient (REF) | payer MEDICARE, OTHER, SELFPAY ==
[2020-04-07 11:14] LABS: Alanine Aminotransferase 89 U/L (0-31); Albumin Level 3.8 g/dL (3.5-5.0); Alkaline Phosphatase 532 U/L (39-117); Aspartate Amino Transferase 47 U/L (5-31); Bilirubin Direct 0.9 mg/dL (0.0-0.5); Bilirubin Total 1.1 mg/dL (0.0-1.0); Total Protein 7.2 g/dL (6.5-8.0)
== END 2020-04-07 10:11 | disposition home or self-care (01) ==
LOC: HO.LAB 10:10
PROVIDERS: PCP Internal Medicine; Visit Provider Physician Assistant Surgical
DX: K80.00 Calculus of gallbladder with acute cholecystitis without obstruction (principal); E80.6 Other disorders of bilirubin metabolism
CPT/HCPCS: 36415; 80076

== ENCOUNTER → 2020-04-09 13:05 | Outpatient (BNVA) | payer MEDICARE, OTHER, SELFPAY | PROVIDERS: PCP Internal Medicine; Visit Provider Surgery | DX: K80.00 Calculus of gallbladder with acute cholecystitis without obstruction (principal); Z90.49 Acquired absence of other specified parts of digestive tract | CPT/HCPCS: 99212 ==

== ENCOUNTER 2020-04-24 07:21 | Outpatient (REF) | payer MEDICARE, OTHER, SELFPAY ==
[2020-04-24 07:41] LABS: MANUAL DIFF FLAG NO
[2020-04-24 07:47] LABS: Basophils Percent Auto 0.4 % (0-2); Eosinophils Absolute Auto 0.1 X10*3/uL (0.0-0.4); Eosinophils Percent Auto 2.3 % (0-4); Hematocrit 41.3 % (37-47); Hemoglobin 12.9 g/dl (12.0-16.0); Imm Gran Abs Auto 0.01 X10*3/uL (0.00-0.03); Imm Gran Pct Auto 0.2 % (0.0-0.4); Immature Retic Fraction 7.8 % (3.0-15.9); Lymphocytes Absolute Auto 1.5 X10*3/uL (1.2-4.9); Lymphocytes Percent Auto 31.2 % (20-40); Mean Corpuscular HGB Conc 31.2 g/dl (31.0-35.0); Mean Corpuscular Volume 86.4 fL (80-98); Mean Platelet Volume 11.1 fL (9.4-12.3); Monocytes Absolute Auto 0.3 X10*3/uL (0.1-1.2); Monocytes Percent Auto 6.5 % (2-11); Neutrophils Absolute Auto 2.8 X10*3/uL (2.0-8.3); Neutrophils Percent Auto 59.4 % (45-73); Platelet Count 223 X10*3/uL (160-400); Red Blood Count 4.78 X10*6/uL (4.20-5.50); Red Cell Distribution Width 13.2 % (11.0-16.0); Retic HGB Equivalent 31.7 pg (30.0-35.0); Reticulocyte Percent 1.7 % (0.5-1.8); Reticulocytes Absolute 0.083 X10*6/uL (0.026-0.095); White Blood Count 4.8 X10*3/uL (4.8-10.8)
[2020-04-24 08:16] LABS: Alanine Aminotransferase 34 U/L (0-31); Albumin Level 4.2 g/dL (3.5-5.0); Alkaline Phosphatase 213 U/L (39-117); Anion Gap 12 (12-20); Aspartate Amino Transferase 27 U/L (5-31); Bilirubin Total 0.9 mg/dL (0.0-1.0); Blood Urea Nitrogen 20 mg/dL (9-16); Calcium 9.3 mg/dL (8.4-10.2); Carbon Dioxide 30 mmol/L (22-29); Chloride 101 mmol/L (96-108); Estimated Glomerular Filt Rate > 60; Glucose Random 101 mg/dL (60-115); Iron 87 mcg/dL (30-160); Percent Iron Saturation 28 % (15-50); Potassium 4.1 mmol/L (3.3-5.1); Sodium 139 mmol/L (135-145); Total Iron Binding Capacity 313 mcg/dL (228-428); Total Protein 7.5 g/dL (6.5-8.0); Unsaturated Iron Binding 226 ug/dL
[2020-04-24 08:32] LABS: Ferritin 375 ng/mL (10-250)
[2020-04-24 09:04] LABS: HBc Num1 0.49 S/CO (0.00-0.79); HBsAGNum1 0.19 S/CO (0.00-0.99); Hepatitis B Core Antibody Nonreactive (Nonreactive); Hepatitis B Surface Antigen Negative (Negative); ~Hepatitis B Surface Antibody NONREACTIVE (Nonreactive)
[2020-04-24 09:16] LABS: ~HepC Num1 0.17 S/CO (0.00-0.79); ~Hepatitis C Antibody Nonreactive (Nonreactive)
[2020-04-24 10:01] LABS: Folate > 20.0 ng/mL (> or = 4.0); Vitamin B12 374 pg/mL (200-900)
[2020-04-25 08:28] LABS: Hepatitis A Antibody IgM 0.12 Index (0-0.79); ~Hepatitis A Antibody IgM Nonreactive (Nonreactive)
== END 2020-04-24 07:22 | disposition home or self-care (01) ==
LOC: HO.LAB 07:21
PROVIDERS: Visit Provider Internal Medicine
DX: D64.9 Anemia, unspecified (principal); R79.89 Other specified abnormal findings of blood chemistry
CPT/HCPCS: 36415; 80053; 82607; 82728; 82746; 83540; 85025; 85045; 86704; 86706; 86709; 86803; 87340

== ENCOUNTER 2020-06-11 10:32 | Outpatient (REF) | payer MEDICARE, OTHER, SELFPAY ==
[2020-06-11 14:16] LABS: Alanine Aminotransferase 32 U/L (0-31); Albumin Level 4.5 g/dL (3.5-5.0); Alkaline Phosphatase 132 U/L (39-117); Aspartate Amino Transferase 26 U/L (5-31); Bilirubin Direct 0.2 mg/dL (0.0-0.5); Total Protein 7.6 g/dL (6.5-8.0)
== END 2020-06-11 10:33 | disposition home or self-care (01) ==
LOC: HO.10HDL 10:32
PROVIDERS: Visit Provider Internal Medicine Gastroenterology
DX: R79.89 Other specified abnormal findings of blood chemistry (principal)
CPT/HCPCS: 36415; 80076

== ENCOUNTER 2020-06-23 08:48 | Outpatient (REF) | payer MEDICARE, OTHER, SELFPAY ==
--- NOTE | ~2020-06-23 | US_ITS ---
EXAMINATION: US ABDOMEN COMPLETE CLINICAL INFORMATION: Elevated LFTs. COMPARISON: Ultrasound abdomen limited 03/29/2020. CT abdomen pelvis same date. MRI abdomen 04/02/2020 TECHNIQUE: Real-time imaging of the abdominal viscera. FINDINGS: PANCREAS: Normal. ABDOMINAL AORTA: The proximal, mid, and distal segments are normal in caliber. INFERIOR VENA CAVA: Visualized portions are normal. LIVER: Normal. The liver is normal in size. The liver contour is normal. Parenchymal echogenicity is normal. No focal hepatic lesion. There is no intrahepatic biliary duct dilatation seen. GALLBLADDER: Surgically absent. No fluid collection seen in the gallbladder fossa. COMMON BILE DUCT: Normal in caliber measuring 0.8 cm in diameter. RIGHT KIDNEY: There is a 3 mm echogenic focus with twinkle artifact questionable for a small stone. No hydronephrosis or focal parenchymal lesions. The kidney measures 10.7 cm in maximum dimension. LEFT KIDNEY: There is a 1.6 x 1.2 x 1.3 cm cyst in the upper pole. No hydronephrosis or renal calculi. The kidney measures 10.2 cm in maximum dimension. SPLEEN: Normal. The spleen measures 9.7 cm in maximum dimension. FREE FLUID: None. US/US abdomen complete IMPRESSION: Post cholecystectomy. No biliary duct dilatation or fluid seen in the gallbladder fossa. Small left renal cyst. Question small right renal stone.
== END 2020-06-23 08:49 | disposition home or self-care (01) ==
LOC: HO.US 08:48
PROVIDERS: Visit Provider Internal Medicine Gastroenterology
DX: R79.89 Other specified abnormal findings of blood chemistry (principal)
CPT/HCPCS: 76700

== ENCOUNTER 2020-09-23 12:28 | Outpatient (REF) | payer MEDICARE, OTHER, SELFPAY ==
[2020-09-23 14:20] LABS: Alanine Aminotransferase 25 U/L (0-31); Albumin Level 4.4 g/dL (3.5-5.0); Alkaline Phosphatase 131 U/L (39-117); Aspartate Amino Transferase 22 U/L (5-31); Bilirubin Direct 0.2 mg/dL (0.0-0.5); Bilirubin Total 0.7 mg/dL (0.0-1.0); Gamma Glutamyl Transpeptidase 43 U/L (7-33); Total Protein 7.5 g/dL (6.5-8.0)
== END 2020-09-23 12:29 | disposition home or self-care (01) ==
LOC: HO.HMGCLDS 12:28
PROVIDERS: PCP Internal Medicine; Visit Provider Internal Medicine Gastroenterology
DX: R79.89 Other specified abnormal findings of blood chemistry (principal)
CPT/HCPCS: 36415; 80076; 82977

== ENCOUNTER 2020-11-27 06:30 | Outpatient (REF) | payer MEDICARE, OTHER, SELFPAY ==
[2020-11-27 11:10] LABS: MANUAL DIFF FLAG NO
[2020-11-27 11:11] LABS: Basophils Percent Auto 0.7 % (0-2); Eosinophils Absolute Auto 0.2 X10*3/uL (0.0-0.4); Eosinophils Percent Auto 3.9 % (0-4); Hematocrit 44.8 % (37-47); Hemoglobin 14.3 g/dl (12.0-16.0); Imm Gran Abs Auto 0.01 X10*3/uL (0.00-0.03); Imm Gran Pct Auto 0.2 % (0.0-0.4); Lymphocytes Absolute Auto 1.5 X10*3/uL (1.2-4.9); Lymphocytes Percent Auto 33.1 % (20-40); Mean Corpuscular HGB Conc 31.9 g/dl (31.0-35.0); Mean Corpuscular Hemoglobin 27.4 pg (27.0-33.0); Mean Platelet Volume 11.4 fL (9.4-12.3); Monocytes Absolute Auto 0.3 X10*3/uL (0.1-1.2); Monocytes Percent Auto 6.6 % (2-11); Neutrophils Absolute Auto 2.4 X10*3/uL (2.0-8.3); Neutrophils Percent Auto 55.5 % (45-73); Platelet Count 199 X10*3/uL (160-400); Red Blood Count 5.21 X10*6/uL (4.20-5.50); Red Cell Distribution Width 12.9 % (11.0-16.0); White Blood Count 4.4 X10*3/uL (4.8-10.8)
[2020-11-27 11:54] LABS: Alanine Aminotransferase 26 U/L (0-31); Albumin Level 4.3 g/dL (3.5-5.0); Alkaline Phosphatase 129 U/L (39-117); Aspartate Amino Transferase 23 U/L (5-31); Bilirubin Direct 0.2 mg/dL (0.0-0.5); Bilirubin Total 0.6 mg/dL (0.0-1.0)
[2020-11-29 15:36] LABS: Mitochondrial Antibodies NEGATIVE (NEGATIVE)
[2020-12-01 13:51] LABS: Anti Nuclear Antibody Pattern Nuclear, Homogeneous; Anti Nuclear Antibody Screen POSITIVE (NEGATIVE)
[2020-12-03 00:47] LABS: Smooth Muscle Antibody <20 U (<20)
== END 2020-11-27 06:31 | disposition home or self-care (01) ==
LOC: HO.HMGCLDS 06:30
PROVIDERS: PCP Internal Medicine; Visit Provider Internal Medicine Gastroenterology
DX: R94.5 Abnormal results of liver function studies (principal)
CPT/HCPCS: 36415; 80076; 85025; 86038; 86039; 86255; 86256

== ENCOUNTER 2021-03-03 07:01 | Outpatient (REF) | payer MEDICARE, OTHER, SELFPAY ==
[2021-03-03 11:58] LABS: Alanine Aminotransferase 28 U/L (0-31); Albumin Level 4.1 g/dL (3.5-5.0); Alkaline Phosphatase 126 U/L (39-117); Aspartate Amino Transferase 20 U/L (5-31); Bilirubin Direct 0.2 mg/dL (0.0-0.5); Bilirubin Total 0.6 mg/dL (0.0-1.0)
== END 2021-03-03 07:02 | disposition home or self-care (01) ==
LOC: HO.HMGCLDS 07:01
PROVIDERS: PCP Internal Medicine; Visit Provider Internal Medicine Gastroenterology
DX: R79.89 Other specified abnormal findings of blood chemistry (principal)
CPT/HCPCS: 36415; 80076

== ENCOUNTER 2021-05-28 06:41 | Outpatient (REF) | payer MEDICARE, OTHER, SELFPAY ==
[2021-05-28 12:00] LABS: Alanine Aminotransferase 21 U/L (0-31); Albumin Level 4.2 g/dL (3.5-5.0); Alkaline Phosphatase 118 U/L (39-117); Aspartate Amino Transferase 19 U/L (5-31); Bilirubin Direct 0.2 mg/dL (0.0-0.5); Bilirubin Total 0.7 mg/dL (0.0-1.0); Gamma Glutamyl Transpeptidase 42 U/L (7-33); Total Protein 7.1 g/dL (6.5-8.0)
== END 2021-05-28 06:42 | disposition home or self-care (01) ==
LOC: HO.HMGCLDS 06:41
PROVIDERS: Visit Provider Internal Medicine Gastroenterology
DX: R79.89 Other specified abnormal findings of blood chemistry (principal)
CPT/HCPCS: 36415; 80076; 82977

== ENCOUNTER 2021-09-02 06:30 | Outpatient (REF) | payer MEDICARE, OTHER, SELFPAY ==
[2021-09-02 11:16] LABS: Alanine Aminotransferase 25 U/L (0-31); Albumin Level 4.1 g/dL (3.5-5.0); Alkaline Phosphatase 130 U/L (39-117); Aspartate Amino Transferase 21 U/L (5-31); Bilirubin Direct 0.2 mg/dL (0.0-0.5); Bilirubin Total 0.6 mg/dL (0.0-1.0); Gamma Glutamyl Transpeptidase 45 U/L (7-33); Total Protein 6.9 g/dL (6.5-8.0)
== END 2021-09-02 06:31 | disposition home or self-care (01) ==
LOC: HO.HMGCLDS 06:30
PROVIDERS: PCP Internal Medicine; Visit Provider Internal Medicine Gastroenterology
DX: R79.89 Other specified abnormal findings of blood chemistry (principal)
CPT/HCPCS: 36415; 80076; 82977

== ENCOUNTER 2021-12-29 06:13 | Outpatient (REF) | payer MEDICARE, OTHER, SELFPAY ==
[2021-12-29 11:20] LABS: MANUAL DIFF FLAG NO
[2021-12-29 11:30] LABS: Basophils Percent Auto 0.8 % (0-2); Eosinophils Absolute Auto 0.2 X10*3/uL (0.0-0.4); Eosinophils Percent Auto 3.1 % (0-4); Hematocrit 43.8 % (37.0-47.0); Hemoglobin 14.1 g/dl (12.0-16.0); Imm Gran Abs Auto 0.02 X10*3/uL (0.00-0.03); Imm Gran Pct Auto 0.4 % (0.0-0.4); Lymphocytes Absolute Auto 1.4 X10*3/uL (1.2-4.9); Lymphocytes Percent Auto 26.6 % (20-40); Mean Corpuscular HGB Conc 32.2 g/dl (31.0-35.0); Mean Corpuscular Hemoglobin 27.5 pg (27.0-33.0); Mean Corpuscular Volume 85.4 fL (80.0-98.0); Mean Platelet Volume 11.6 fL (9.4-12.3); Monocytes Absolute Auto 0.4 X10*3/uL (0.1-1.2); Monocytes Percent Auto 6.9 % (2-11); Neutrophils Absolute Auto 3.3 x10*3/uL (2.0-8.3); Neutrophils Percent Auto 62.2 % (45-73); Platelet Count 208 X10*3/uL (160-400); Red Blood Count 5.13 X10*6/uL (4.20-5.50); Red Cell Distribution Width 12.9 % (11.0-16.0); White Blood Count 5.2 X10*3/uL (4.8-10.8)
[2021-12-29 11:52] LABS: Alanine Aminotransferase 24 U/L (0-31); Albumin Level 4.4 g/dL (3.5-5.0); Alkaline Phosphatase 124 U/L (39-117); Aspartate Amino Transferase 19 U/L (5-31); Bilirubin Direct 0.2 mg/dL (0.0-0.5); Bilirubin Total 0.8 mg/dL (0.0-1.0); Gamma Glutamyl Transpeptidase 58 U/L (7-33); Total Protein 7.3 g/dL (6.5-8.0)
[2022-01-05 17:26] LABS: FIB-ALT 22 U/L (6-29); FIB-Alpha-2-Macroglobulin 137 mg/dL (106-279); FIB-Apolipoprotein A1 155 mg/dL (101-198); FIB-GGT 47 U/L (3-65); FIB-Haptoglobin 118 mg/dL (43-212); FIB-Total Bilirubin 0.7 mg/dL (0.2-1.2); Liver Fibrosis Stage F0; Nec Inflam Act Grade A0; Nec Inflam Act Score 0.08
== END 2021-12-29 06:14 | disposition home or self-care (01) ==
LOC: HO.HMGCLDS 06:13
PROVIDERS: PCP Internal Medicine; Visit Provider Internal Medicine Gastroenterology
DX: R79.89 Other specified abnormal findings of blood chemistry (principal)
CPT/HCPCS: 36415; 80076; 81596; 82977; 85025

== ENCOUNTER 2024-04-04 09:04 | Outpatient (AMB) | payer MEDICARE, OTHER, SELFPAY ==
--- NOTE | 2024-04-04 09:28 | AM.OFFVISMDC ---
Intake Vital Signs 04/04/24 09:42 Height 5 ft 5 in Weight 138 lb BMI 23.0 BP 128/76 Blood Pressure Location Lt brachial Position Sitting Pulse 75 Pulse Source Pulse Oximeter Pulse Oximetry (%) 97 Oxygen Delivery Method Room Air Intake Visit Reasons: Initial AWV Allergies oxycodone [Percocet] Allergy (Unknown, Verified 04/04/24 09:44) rash Medication List - Last Reconciled 04/04/24 by Ivette Wang MD lansoprazole 30 mg PO DAILY loratadine 10 mg PO DAILY multivitamin 1 tab PO DAILY HPI Initial AWV HPI Details The patient is a 68-year-old female presenting for an annual wellness examination. She has a history of presbyopia and suspects a prolapse or hernia, described as feeling the need to urinate more frequently. This issue has been present for several years and is not severely debilitating but is bothersome. 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 The patient also has a history of undergoing a cholecystectomy four years ago due to gallbladder issues, after which she managed dietary changes to mitigate diarrhea. Additionally, she has a history of a thyroid nodule for which a biopsy was performed revealing fluid but no malignancy. Her renal surgery history and hysterectomy are noted, and currently, the patient suspects possible renal/urogenital issues but is not symptomatic. She manages GERD with daily linsoprazole and reports being stable with it. She denies experiencing any new allergies other than previously noted allergies to components like colon and cocaine. The patient suspects possible otitis externa as she experiences a sensation of wax build-up affecting her hearing. There is an interest in having her ears flushed. Additionally, her blood pressure has improved since 2020. - Influenza vaccination discussed and administered - Bloodwork requested including a complete blood count, glucose, kidney, liver function tests, thyroid panel, cholesterol, and vitamin D levels - Mammogram referral provided - Cologuard test ordered - Bone density test recommended - Encouraged healthy diet, exercise, adequate hydration, and sleep hygiene - Discussed importance of handwashing and food safety to prevent respiratory and gastrointestinal infections - , responsible for raising two granddaughters aged 10 and 16 following daughter's - Denies current employment - Denies alcohol use, cigarette smoking since early experimentation - Dietary changes following cholecystectomy - Reports adequate hydration but increased nocturia potentially affecting sleep - Cardiovascular: Denies chest pain, palpitations, or shortness of breath - Respiratory: Denies cough or wheezing - Gastrointestinal: Reports previous diarrhea post-cholecystectomy; denies current gastrointestinal discomfort - Genitourinary: Reports nocturia up to 3 times nightly - Neurological: Denies dizziness or loss of consciousness - Musculoskeletal: Denies current joint pain or weakness [facility] Medical History (Updated 04/04/24 @ 10:08 by Ivette Wang MD) History of right inguinal hernia Hyperbilirubinemia Nephrolithiasis GERD (gastroesophageal reflux disease) Surgical History (Updated 04/27/20 @ 10:25 by Ivette Wang MD) History of kidney surgery History of cholecystectomy H/O hysterectomy with oophorectomy Family History (Updated 04/04/24 @ 09:47 by Laine Tena [facility]) Father Diabetes Kidney disease Heart disease Mother Stroke Heart disease Afib Brother Cancer of blood vessel Brother Heart disease Brother Diabetes Brother No problems noted. Sister No problems noted. Sister No problems noted. Son No problems noted. Son No problems noted. Social History (Updated 04/04/24 @ 09:58 by Ivette Wang MD) Household Members: Significant Other Housing: House Do you presently have visiting nurse or other home services: No Alcohol intake: never Comment: pt asleep Patient Tobacco Use Status: Never used Tobacco service: No ( [place] ) Current occupational status: employed Questionnaire Medicare Wellness Checkup [age] What gender do you identify with?: female During the past 4 weeks, how much have you been bothered by emotional problems such as feeling anxious, depressed, irritable, sad or downhearted, and blue?: not at all During the past 4 weeks, has your physical & emotional health limited your social activities with family, friends, neighbors, or groups?: not at all During the past 4 weeks, how much bodily pain have you generally had?: very mild pain During the past 4 weeks, was someone available to help you if you needed & wanted help?: yes, as much as I wanted During the past 4 weeks, what was the hardest physical activity you could do for at least 2 minutes?: moderate Can you get to places out of walking distance without help? (For eg., can you travel alone on buses, taxis or drive your car?): Yes Can you go shopping for groceries or clothes without someone's help?: Yes Can you prepare your own meals?: Yes Can you do your housework without help?: Yes Because of any health problems, do you need the help of another person with your personal care needs such as eating, bathing, dressing or getting around the house?: No Can you handle your own money without help?: Yes During the past 4 weeks, how would you rate your health in general?: excellent During the past 4 weeks how have things been going for you?: very well; could hardly better Are you having difficulties driving your car?: no Do you always fasten your seat belt when you are in a car?: yes, usually During past 4 weeks, have you been bothered by the following: never: Falling or dizzy when standing up, Sexual problems?, Trouble eating well?, Teeth or denture problems? and Problems using the telephone? and sometimes: Tiredness or fatigue? Have you fallen 2 or more times in the past year?: No Are you afraid of falling?: No Are you a smoker?: no During the past 4 weeks, how many drinks of wine, beer, or other alcoholic beverages did you have?: no alcohol at all Do you exercise for about 20 minutes 3 or more times a week?: yes, most of the time Have you been given information to help with the following?: no: Hazards in your house that might hurt you? and no: Keeping track of your medications? How often do you have trouble taking medicines the way you have been told to take them?: I do not have to take medicine How confident are you that you can control & manage most of your health problems?: very confident What is your race?: White PHQ-9 Over the last 2 weeks, how often have you been bothered by any of the following problems? 1. Little interest or pleasure in doing things: not at all 2. Feeling down, depressed, or hopeless: not at all 3. Trouble falling or staying asleep, or sleeping too much: not at all 4. Feeling tired or having little energy: not at all 5. Poor appetite or overeating: not at all 6. Feeling bad about yourself - or that you are a failure or have let yourself or your family down: not at all 7. Trouble concentrating on things, such as reading the newspaper or watching television: not at all 8. Moving or speaking so slowly that other people could have noticed. Or the opposite - being so fidgety or restless that you have been moving around a lot more than usual: not at all 9. Thoughts that you would be better off or of hurting yourself in some way: not at all Total score: 0 Depression Screening Interpretation: Negative Depression Screening Done: Yes 54538 - PHQ-9 Billing: Yes Source: Developed by Drs. Brando Naqvi, Nusrat Fitzgerald, Hebert Castillo and colleagues, with an educational haydee from [employer]. Thrive Questionnaire Date Thrive assessed: 04/04/24 I am a: Patient What is your living situation today?: I have a steady place to live Within the past 12 months, did the food you bought not last and you didn't have the money to get more?: Never true Within the past 12 months, did you worry whether your food would run out before you got money to buy more?: Never true Do you have trouble paying for medicines?: No Do you have trouble getting transportation to medical appointments?: No Do you have trouble paying your heating and electricity bill?: No Do you have trouble taking care of your child, family member or friend?: No Do you have trouble with day-to-day activities such as bathing, preparing meals, shopping, managing finances, etc.?: No Are you currently unemployed and looking for a job?: No Are you interested in more education?: No Currently or been in a relationship where the following occur: No concerns reported THRIVE Score: 0 JAMIE-7 AMB Questionnaire JAMIE-7 Date JAMIE - 7 assessed: 04/04/24 Feeling nervous, anxious, or on edge: 0 = Not at all Not being able to stop or control worryin = Not at all Worrying too much about different things: 0 = Not at all Trouble relaxin = Not at all Being so restless that it is hard to sit still: 0 = Not at all Becoming easily annoyed or irritable: 0 = Not at all Feeling afraid as if something awful might happen: 0 = Not at all Total JAMIE-7 score (0-4 normal; 5-9 mild; 10-14 moderate; 15-21 severe): 0 Source: Developed by Drs. Brando Naqvi, Nusrat Fitzgerald, Hebert Castillo and colleagues, with an educational haydee from [employer]. JAMIE-7 Assessment Billing JAMIE-7 Assessment Tool: JAMIE-7 Assessment 59427 Review of Systems Const Denies poor appetite and Denies weakness Eyes Denies no additional complaints ENT Reports Normal hearing present, Denies dizziness, Denies nasal congestion, Denies tinnitus and Denies sore throat Card Denies chest pain, Denies syncope, Denies rapid heart rate and Denies dyspnea Resp Denies cough and Denies dyspnea GI Denies change in stool character, Reports constipation, Denies diarrhea, Denies nausea and Denies vomiting Denies urinary frequency, Denies difficulty voiding and Denies dysuria Neuro Reports Normal hearing present, Denies confusion, Denies dizziness, Denies syncope and Denies weakness Psych Denies confusion Physical Exam Vital Signs: Last Vital Signs Pulse 75 04/04/24 09:42 BP 128/76 04/04/24 09:42 Pulse Ox 97 04/04/24 09:42 Oxygen Delivery Method Room Air 04/04/24 09:42 BMI result Body Mass Index 23.0 Const General: No confusion Orientation/consciousness: No confusion HEENT Other: impacted cerumen Head: Yes normocephalic Ears: external ears normal Face and sinus: Yes normal facial exam Mouth: moist mucous membranes Throat: Yes tonsils normal Eyes Conjunctivae: conjunctivae normal Pupils: Equal, round and reactive pupils present and Pupil accommodation reflex normal Direct Ophthalmoscopy: normal light reflex Neck Neck: No lymphadenopathy Thyroid: Thyroid normal Chest Chest palpation & inspection: normal inspection of the chest Resp Effort & Inspection: normal respiratory effort and no audible wheezes Auscultation: clear to auscultation bilaterally, no crackles, no wheezes and lung sounds not diminished Cardio Rate: regular rate Rhythm: regular rhythm Peripheral pulses: radial pulses present and dorsalis pedis present GI Palpation (GI): no masses Auscultation: normal bowel sounds and normoactive bowel sounds Rectal Exam - Female: deferred Skin General skin exam: no rashes or lesions noted Rashes: no rashes Neuro General: No confusion Cranial nerves: Yes Equal, round and reactive pupils present and Yes Normal hearing present Cognition (Neuro): normal cognition Gait exam (Neuro): Normal gait present Motor exam (neuro): 07/23 motor strength present throughout Deep tendon reflexes (DTR's): Right brachioradialis reflex intensity grade: 2+, Left brachioradialis reflex intensity grade: 2+, Right patellar reflex intensity grade: 2+ and Left patellar reflex intensity grade: 2+ Extrem General: No edema Office Procedures Flu Questionnaire Does the patient have a severe egg allergy?: No Does the patient have severe life threatening allergies?: No Does the patient have a fever or illness today?: No Has the patient ever had Guillain-Mars Syndrome?: No Has the patient ever had any past reaction to a flu shot?: No Immunizations Fluarix Triv 5036-7160 (PF) 45 mcg (15 mcg x 3)/0.5 mL IM syringe Performing Provider: Ivette Wang MD [facility] [place] [facility] Administered by: Laine Tena CMA on 04/04/24 10:13 Dose Route Admin Location Dispensed Lot Number Expiration Date [facility] Manager Intensive Care Unit 0.5 mL IM Left Deltoid 0.5 mL [id number] 09/17/24 [id number] Parature VIS Given Date VIS Provided VIS Publication Date 04/04/24 Single Vaccine 20 Eligibility Eligibility Date Funding Source Not [place] Eligible 04/04/24 Private Assessment & Plan Assessment & Plan (1) Annual wellness visit: Code(s): Z00.00 - Encounter for general adult medical examination without abnormal findings (2) GERD (gastroesophageal reflux disease): Code(s): K21.9 - Gastro-esophageal reflux disease without esophagitis (3) LFT elevation: Code(s): R79.89 - Other specified abnormal findings of blood chemistry (4) Prolapse of female bladder, acquired: Code(s): N81.10 - Cystocele, unspecified (5) Colon cancer screening: Code(s): Z12.11 - Encounter for screening for malignant neoplasm of colon (6) Breast cancer screening by mammogram: Code(s): Z12.31 - Encounter for screening mammogram for malignant neoplasm of breast (7) Impacted cerumen of both ears: Code(s): H61.23 - Impacted cerumen, bilateral Plan - Recommend evaluation with urology or gynecology for possible prolapse or hernia - Use linsoprazole as necessary for GERD; discussed potential reduction if symptomatically stable - Thyroid function to be monitored; re-evaluate if symptoms arise - Address ear wax build-up with lavage if symptoms of otitis externa persist - Revisit renal status if symptoms develop I discussed with the patient the likely continuation of care as her overall health is stable. We reviewed the risks and benefits of her current medications and recommended dosages for conditions such as GERD. The need for colorectal screening through Cologuard and mammogram follow-up was stressed, as well as an assessment to evaluate for possible prolapse or hernia by a specialist, although surgery is not a preferred intervention. We discussed the blood tests planned and their importance in monitoring her overall health status, particularly because she hasn?t had any recent lab work. I encouraged her to remain vigilant about her hydration and dietary habits, as this can impact nocturia and sleep quality. The administration of the influenza vaccine was also completed. - Continue taking linsoprazole as needed and reassess if experiencing changes in symptoms - Keep upcoming bloodwork and mammography appointments as scheduled - Expect contact from specialists for prolapse/hernia evaluation - Maintain current dietary adjustments to prevent gastrointestinal upset - Contact healthcare if experiencing any new symptoms concerning her ear or genitourinary tract - Administer administered flu shot annually - Increase fluid intake earlier in the day to reduce nocturia - Observe for potential signs of thyroid issues and report changes Orders: Orders Vitamin B12 and Folate Today K21.9 - Gastro-esophageal reflux disease without esophagitis Complete Blood Count Auto Diff Today K21.9 - Gastro-esophageal reflux disease without esophagitis Comprehensive Met. Panel Today K21.9 - Gastro-esophageal reflux disease without esophagitis Free T4 (Free Thyroxine) Today K21.9 - Gastro-esophageal reflux disease without esophagitis Thyroid Stimulating Hormone Today K21.9 - Gastro-esophageal reflux disease without esophagitis Lipid Panel Today E78.00 - Pure hypercholesterolemia, unspecified, K21.9 - Gastro-esophageal reflux disease without esophagitis Vitamin D 25-OH Total Today K21.9 - Gastro-esophageal reflux disease without esophagitis MM tomosynthesis screening BI Today Z12.31 - Encounter for screening mammogram for malignant neoplasm of breast XR DEXA axial skeleton Today M81.0 - Age-related osteoporosis without current pathological fracture, Z12.31 - Encounter for screening mammogram for malignant neoplasm of breast Influenza 8477-2270 Immunization Today Z23 - Encounter for immunization Referrals Urogynecology Referral N81.10 - Cystocele, unspecified Cologuard Test Z12.11 - Encounter for screening for malignant neoplasm of colon Quality Reporting (2019) Depression/Bipolar (159/160/161/177) PHQ-9: Total score: 0 Coding Level of Care Code Medicare First (G0438) Diagnoses Annual wellness visit Z00.00 GERD (gastroesophageal reflux disease) K21.9 LFT elevation R79.89 Prolapse of female bladder, acquired N81.10 Colon cancer screening Z12.11 Breast cancer screening by mammogram Z12.31 Impacted cerumen of both ears H61.23 Additional Codes JAMIE-7 Assessment Billing - JAMIE-7 Assessment Tool: JAMIE-7 Assessment 10907 ([id number]) PHQ-9 - 38273 - PHQ-9 Billing: Yes ([id number])
[2024-04-04 09:42] VITALS: BP 128/76; PULSE 75; O2SAT 97; BMI 23.0
== END 2024-04-04 10:21 | disposition home or self-care (01) ==
PROVIDERS: PCP Internal Medicine; Visit Provider Internal Medicine
DX: Z00.00 Encounter for general adult medical examination without abnormal findings (principal); K21.9 Gastro-esophageal reflux disease without esophagitis; R79.89 Other specified abnormal findings of blood chemistry; N81.10 Cystocele, unspecified; Z12.11 Encounter for screening for malignant neoplasm of colon; Z12.31 Encounter for screening mammogram for malignant neoplasm of breast; H61.23 Impacted cerumen, bilateral; Z23 Encounter for immunization

== ENCOUNTER → 2024-04-04 09:04 | Outpatient (BNVA) | payer MEDICARE, OTHER, SELFPAY | PROVIDERS: PCP Internal Medicine; Visit Provider Internal Medicine | DX: Z00.00 Encounter for general adult medical examination without abnormal findings (principal); K21.9 Gastro-esophageal reflux disease without esophagitis; R79.89 Other specified abnormal findings of blood chemistry; N81.10 Cystocele, unspecified; H61.23 Impacted cerumen, bilateral; E78.00 Pure hypercholesterolemia, unspecified; Z23 Encounter for immunization | CPT/HCPCS: 90471; 90656; 96127 ==

== ENCOUNTER 2024-04-05 06:32 | Outpatient (REF) | payer MEDICARE, OTHER, SELFPAY ==
[2024-04-05 10:12] LABS: MANUAL DIFF FLAG NO
[2024-04-05 10:18] LABS: Basophils Absolute Auto 0.1 X10*3/uL (0.0-0.2); Basophils Percent Auto 1.1 % (0-2); Eosinophils Absolute Auto 0.3 X10*3/uL (0.0-0.4); Eosinophils Percent Auto 5.5 % (0-4); Hematocrit 45.9 % (37.0-47.0); Hemoglobin 14.8 g/dl (12.0-16.0); Imm Gran Abs Auto 0.01 X10*3/uL (0.00-0.03); Imm Gran Pct Auto 0.2 % (0.0-0.4); Lymphocytes Absolute Auto 1.4 X10*3/uL (1.2-4.9); Lymphocytes Percent Auto 27.3 % (20-40); Mean Corpuscular HGB Conc 32.2 g/dl (31.0-35.0); Mean Corpuscular Hemoglobin 27.9 pg (27.0-33.0); Mean Corpuscular Volume 86.6 fL (80.0-98.0); Mean Platelet Volume 11.1 fL (9.4-12.3); Monocytes Absolute Auto 0.5 X10*3/uL (0.1-1.2); Monocytes Percent Auto 9.2 % (2-11); Neutrophils Percent Auto 56.7 % (45-73); Platelet Count 194 X10*3/uL (160-400); Red Cell Distribution Width 13.1 % (11.0-16.0); White Blood Count 5.2 X10*3/uL (4.8-10.8)
[2024-04-05 10:44] LABS: Albumin Level 4.3 g/dL (3.5-5.0); Anion Gap 12 (12-20); Aspartate Amino Transferase 31 U/L (5-31); Bilirubin Total 0.7 mg/dL (0.0-1.0); Blood Urea Nitrogen 18 mg/dL (9-16); Calcium 9.9 mg/dL (8.4-10.2); Carbon Dioxide 28 mmol/L (22-29); Chloride 107 mmol/L (96-108); Cholesterol 219 mg/dL (<200); Estimated Glomerular Filt Rate > 60; Glucose Random 91 mg/dL (60-115); HDL Cholesterol 52 mg/dL (>40); LDL Cholesterol Calculated 142 mg/dL (<100); Potassium 5.2 mmol/L (3.3-5.1); Sodium 142 mmol/L (135-145); Total Protein 7.8 g/dL (6.5-8.0); Triglycerides 129 mg/dL (<150)
[2024-04-05 11:06] LABS: Folate 16.5 ng/mL (> or = 4.0); Vitamin B12 688 pg/mL (200-900)
[2024-04-05 11:16] LABS: Alanine Aminotransferase 35 U/L (0-31); Alkaline Phosphatase 118 U/L (39-117)
== END 2024-04-05 06:33 | disposition home or self-care (01) ==
LOC: HO.HMGCLDS 06:32
PROVIDERS: PCP Internal Medicine; Visit Provider Internal Medicine
DX: E78.00 Pure hypercholesterolemia, unspecified (principal); K21.9 Gastro-esophageal reflux disease without esophagitis
CPT/HCPCS: 36415; 80053; 80061; 82306; 82607; 82746; 84439; 84443; 85025

== ENCOUNTER 2024-04-11 11:16 | Outpatient (AMB) | payer MEDICARE, OTHER, SELFPAY ==
--- NOTE | 2024-04-11 11:20 | A.OFFPC_ITS ---
Vital Signs 04/11/24 11:21 04/11/24 11:54 Height 5 ft 5 in Weight 141 lb 4 oz BMI 23.5 BP 148/88 H 120/82 Blood Pressure Location Lt brachial Lt brachial Position Sitting Sitting Pulse 81 Pulse Source Pulse Oximeter Pulse Oximetry (%) 96 Oxygen Delivery Method Room Air Intake Visit Reasons: ear flushing Distributor Publications Required: No Accompanied by: Self / Same As Patient Allergies oxycodone [Percocet] Allergy (Unknown, Verified 04/11/24 11:25) rash Tobacco use date assessed: 04/11/24 Fall risk assessment: No Falls in past year Last assessed Fall Risk: 04/11/24 Dental Screening Dental Screen Date: 04/11/24 Did you have a dental visit in the last 12 months?: Yes Did you have a dental problem in the last 6 months where you did not have access to dental care?: No Was dental information given to patient?: Patient has dentist HPI ear flushing HPI Details 68-year-old female with past medical his tory of anemia, GERD, LFT elevation last seen by Dr. Wang 03/2024 coming in for ear cleaning. [facility] Medical History History of right inguinal hernia Hyperbilirubinemia Nephrolithiasis GERD (gastroesophageal reflux disease) Surgical History History of kidney surgery History of cholecystectomy H/O hysterectomy with oophorectomy Family History Father Diabetes Kidney disease Heart disease Mother Stroke Heart disease Afib Brother Cancer of blood vessel Brother Heart disease Brother Diabetes Brother No problems noted. Sister No problems noted. Sister No problems noted. Son No problems noted. Son No problems noted. Social History Household Members: Significant Other Housing: House Do you presently have visiting nurse or other home services: No Alcohol intake: never Comment: pt asleep Patient Tobacco Use Status: Never used Tobacco e-Cigarette/Vaping Use: Never Used service: No ( [place] ) Current occupational status: employed Cognitive needs: No Hearing needs: No Vision needs: No Questionnaire Thrive Questionnaire Date Thrive assessed: 04/04/24 JAMIE-7 AMB Questionnaire JAMIE-7 Date JAMIE - 7 assessed: 04/04/24 Source: Developed by Drs. Brando Naqvi, Nusrat Fitzgerald, Hebert Castillo and colleagues, with an educational haydee from [employer]. Review of Systems ENT Details: Decreased hearing, blocked ear feeling on left side Card Reports no additional complaints Resp Reports no additional complaints Physical exam (Primary Care) Vital Signs: Last Vital Signs Pulse 81 04/11/24 11:21 BP 148/88 H 04/11/24 11:21 Pulse Ox 96 04/11/24 11:21 Oxygen Delivery Method Room Air 04/11/24 11:21 BMI result Body Mass Index 23.5 Tobacco/Smoking Status: Tobacco use Status Tobacco use date assessed 04/11/24 04/11/24 11:27 Patient Tobacco Use Status Never used Tobacco 04/11/24 11:27 e-Cigarette/Vaping Use Never Used 04/11/24 11:27 Thrive Assessment: Date of Thrive Assessment Date Thrive assessed 04/04/24 04/11/24 11:27 Const General: comfortable and no acute distress Orientation/consciousness: patient oriented x3 HENMT Head: Yes normocephalic Ears: hearing grossly normal bilaterally and Abnormal EAC present cerumen impaction bilateral General nose exam: Normal external nose present Resp Effort & Inspection: normal respiratory effort Cardio Rate: regular rate Neuro General: patient oriented x3 Gait exam (Neuro): Normal gait present Psych Affect: normal affect Attitude: cooperative Insight: Good insight present (Psych) Judgement: Good judgement present (Psych) Office Procedures Cerumen Removal Removal: irrigation and cerumen loop/spoon Notes: patient tolerated procedure well and no complications [id number] Irrigation/Lavage Coding Level of Care Code Procedure Only Diagnoses Impacted cerumen of both ears H61.23 CPT Codes Office Procedure - CPT: 57933-Vyg Irrigation/Lavage ([id number]) Assessment & Plan Assessment & Plan (1) Impacted cerumen of both ears: Code(s): H61.23 - Impacted cerumen, bilateral Category: Medical Plan: Right ear cerumen was successfully removed using lighted curette TM was visualized as intact with well aerated middle ear spaces. Left ear cerumen was irrigated with warm water and hydrogen peroxide and lighted curette used. Left ear was unsuccessful in removing cerumen and TM was unable to be visualized. Advised patient to use Debrox drops for 4 days and follow up in 1 week for repeat flushing of left ear. Plan This note was constructed using voice recognition software. While every effort has been made to ensure accuracy and eyewear manufacturing supervisor, still areas may have been included sometimes these areas may affect the content or meeting of the given symptoms. Total time spent caring for the patient today was 15 minutes. This includes time spent before the visit reviewing the chart, time spent during the visit, and time spent after the visit and documentation.
[2024-04-11 11:21] VITALS: BP 148/88; PULSE 81; O2SAT 96; BMI 23.5
[2024-04-11 11:54] VITALS: BP 120/82
--- OUTSIDE RECORDS SUMMARY | 2024-04-11 12:54 | XMS_ITS | Patient Health Record ---
Author Organization [facility] Address [address] [place] [address] Care Team Providers Care Project Management Analyst Name Role Phone Ivette Wang MD Primary Care Provider Emory Bergeron Jr Unavailable Nikita Card MD Unavailable Unavailable ALLERGIES Allergen (clinical drug ingredient) Drug/Non Drug Allergy documented on EMR Reaction Allergy Type Onset Date Status acetaminophen / oxycodone Percocet Unknown Drug Allergy Active REASON FOR REFERRAL No Information MEDICATIONS Medication SIG (Take, Route, Fr equency, Duration) Notes Start Date End Date Status Lansoprazole 30 MG 1 capsule before a m eal Orally Once a day Unknown Claritin 10 MG 1 tablet Orally Once a day Unknown Ibuprofen PRN Unknown Multivitamin - 1 tablet Orally Once a day Unknown IMMUNIZATIONS Vaccine Route Administration Date Status Comme nts Influenza Unknown 12/05/2019 Administered Influenza Unknown 01/07/2021 Administered SOCIAL HISTORY Tobacco Use: Social History Observation Description Date Details (start date - stop date) Never Smoker NA - NA Sex Assigned At : Social History Observation Description Sex Assigned At Unknown Tobacco Use/Smoking Question Answer Notes Patient is a nonsmoker Alcohol Screen Question Answer Notes Did you have a drink containing alcohol in the p ast year? No Points 0 Interpretation Negative PROBLEMS Problem Type ICD Code Onset Dates Problem Status W/U Status Risk SNOMED Code Notes Problem Other specified abnormal findings of blood chemistry (R79.89) Active confirmed 172417985 Problem Abnormal liver function tests (R79.89) Active confirmed 426219159 Problem Gastroesophageal reflux disease, unspecified whether esophagitis present (K21.9) Active confirmed 562152491 Problem Colonoscopy refused (Z53.20) Active confirmed 191405790629852 Problem Abnormal LFTs (R79.89) Active confirmed 507325078 PLAN OF TREATMENT Pending Test Test Name Order Date LIVER PROFILE 12/02/2020 LIVER PROFILE 03/05/2021 LIVER PROFILE 06/11/2020 LIVER PROFILE 06/24/2020 LIVER PROFILE 09/04/2021 GGT 09/04/2021 GGT 03/05/2021 GGT 05/29/2021 GGT 06/24/2020 CBC w/o DIFF 09/04/2021 US ABD 06/17/2020 Liver Panel 05/29/2021 Liver Fibrosis Pnl 09/04/2021 Insurance Providers Payer Name Payer Address Payer Phone Subscriber Number Group Number Insured Name Patient Relationship to Insured Coverage Start Date Coverage End Date MEDICARE OF [place] [address] [place] [address] [id number] GALDINO BOLTON Self - patient is the insured FOR LIFE [address] [place] [address] [id number] GALDINO BOLTON Self - patient is the insured MEDICAL (GENERAL) HISTORY Medical History History ICD Code kidney stones acid reflux Patient denies heart issues, lung issues ,diabetes. Surgical History Surgery Date(Month/Year) Kidney Stones 1978 hysterectomy 2000 hernia repair 1983 cholecystectomy 2020
== END 2024-04-11 11:55 | disposition home or self-care (01) ==
PROVIDERS: PCP Internal Medicine
DX: H61.23 Impacted cerumen, bilateral (principal)

== ENCOUNTER → 2024-04-11 11:16 | Outpatient (BNVA) | payer MEDICARE, OTHER, SELFPAY | PROVIDERS: PCP Internal Medicine | DX: H61.23 Impacted cerumen, bilateral (principal) | CPT/HCPCS: 69210; 99212 ==

== ENCOUNTER 2024-04-18 10:15 | Outpatient (AMB) | payer MEDICARE, OTHER, SELFPAY ==
--- NOTE | 2024-04-18 10:21 | MHC.PC.OV ---
Vital Signs 04/18/24 10:22 Height 5 ft 5 in Weight 140 lb 6 oz BMI 23.4 BP 120/60 Blood Pressure Location Lt brachial Position Sitting Pulse 72 Pulse Source Pulse Oximeter Temp 96.4 F L Temp Source Skin Pulse Oximetry (%) 94 Oxygen Delivery Method Room Air Intake Visit Reasons: Ear Flushing Intake Note: Patient is here to follow up on Ear flushing. Qm Consultant Required: No Butter Liquefier: Not Required per policy Accompanied by: Self / Same As Patient Allergies oxycodone [Percocet] Allergy (Unknown, Verified 04/18/24 10:21) rash Tobacco use date assessed: 04/18/24 Fall risk assessment: No Falls in past year Last assessed Fall Risk: 04/18/24 Dental Screening Dental Screen Date: 04/11/24 HPI Ear Flushing HPI Details 68-year-old female with past medical history of anemia, GERD, LFT elevation last seen 03/2024 coming in for repeat ear cleaning. She has been using Debrox drops in the left ear. [facility] Medical History History of right inguinal hernia Hyperbilirubinemia Nephrolithiasis GERD (gastroesophageal reflux disease) Surgical History History of kidney surgery History of cholecystectomy H/O hysterectomy with oophorectomy Family History Father Diabetes Kidney disease Heart disease Mother Stroke Heart disease Afib Brother Cancer of blood vessel Brother Heart disease Brother Diabetes Brother No problems noted. Sister No problems noted. Sister No problems noted. Son No problems noted. Son No problems noted. Social History Household Members: Significant Other Housing: House Do you presently have visiting nurse or other home services: No Alcohol intake: never Comment: pt asleep Patient Tobacco Use Status: Never used Tobacco e-Cigarette/Vaping Use: Never Used Second Hand Smoke Exposure: No service: No ( [place] ) Current occupational status: employed Cognitive needs: No Hearing needs: No Vision needs: No Questionnaire Thrive Questionnaire Date Thrive assessed: 04/04/24 JAMIE-7 AMB Questionnaire JAMIE-7 Date JAMIE - 7 assessed: 04/04/24 Source: Developed by DrsDiego Naqvi, Nusrat Fitzgerald, Hebert Castillo and colleagues, with an educational haydee from [employer]. Review of Systems ENT Details: Blocked ear feeling in the left side and decreased hearing Card Reports no additional complaints Resp Reports no additional complaints GI Reports no additional complaints Physical exam (Primary Care) Vital Signs: Last Vital Signs Temp 96.4 F L 04/18/24 10:22 Pulse 72 04/18/24 10:22 BP 120/60 04/18/24 10:22 Pulse Ox 94 04/18/24 10:22 Oxygen Delivery Method Room Air 04/18/24 10:22 BMI result Body Mass Index 23.4 Tobacco/Smoking Status: Tobacco use Status Tobacco use date assessed 04/18/24 04/18/24 10:32 Patient Tobacco Use Status Never used Tobacco 04/18/24 10:32 e-Cigarette/Vaping Use Never Used 04/18/24 10:32 Thrive Assessment: Date of Thrive Assessment Date Thrive assessed 04/04/24 04/18/24 10:32 Const General: cooperative, healthy appearing, comfortable and no acute distress Orientation/consciousness: patient oriented x3 HENMT Head: Yes normocephalic Ears: hearing grossly normal bilaterally, TM normal on the right and Abnormal EAC present cerumen impaction on the left General nose exam: Normal external nose present Eyes General: appearance normal, both eyes and all related structures Conjunctivae: conjunctivae normal Neck Neck: Yes full ROM and Yes no lymphadenopathy Resp Effort & Inspection: normal respiratory effort Cardio Rate: regular rate Neuro General: patient oriented x3 Gait exam (Neuro): Normal gait present Psych Affect: normal affect Attitude: cooperative Insight: Good insight present (Psych) Judgement: Good judgement present (Psych) Office Procedures Cerumen Removal From which ear canal was the cerumen removed: left Removal: irrigation and cerumen loop/spoon Notes: patient tolerated procedure well, no complications and ear canal clear 40298-[id number] Irrigation/Lavage Coding Level of Care Code Procedure Only Diagnoses Impacted cerumen of both ears H61.23 CPT Codes Office Procedure - CPT: 93420-Hme Irrigation/Lavage ([id number]) Assessment & Plan Assessment & Plan (1) Impacted cerumen of both ears: Code(s): H61.23 - Impacted cerumen, bilateral Category: Medical Plan: Cerumen was successfully moved from the right ear at her last visit. The left ear was successfully irrigated and cerumen was removed at today's visit. Patient tolerated the procedure well and no complications. TM was visualized as intact with well aerated middle ear spaces. Follow up as needed for this concern Plan This note was constructed using voice recognition software. While every effort has been made to ensure accuracy and clearing house clerk, still areas may have been included sometimes these areas may affect the content or meeting of the given symptoms. Total time spent caring for the patient today was 20 minutes. This includes time spent before the visit reviewing the chart, time spent during the visit, and time spent after the visit and documentation.
[2024-04-18 10:22] VITALS: BP 120/60; PULSE 72; TEMP 35.8; O2SAT 94; BMI 23.4
--- OUTSIDE RECORDS SUMMARY | 2024-04-18 12:14 | XMS_ITS | Patient Health Record ---
Author Organization [facility] Address [address] [place] [address] Care Team Providers Care Design Engineering Intern Name Role Phone Ivette Wang MD Primary Care Provider Emory Bergeron Jr Unavailable [phone] Nikita Card MD Unavailable Unavailable ALLERGIES Allergen [...] findings of blood chemistry (R79.89) Active confirmed 658100673 Problem Abnormal liver function tests (R79.89) Active confirmed 992865176 Problem Gastroesophageal reflux disease, unspecified whether esophagitis present (K21.9) Active confirmed 453487384 Problem Colonoscopy refused (Z53.20) Active confirmed 369276613109208 Problem Abnormal LFTs (R79.89) Active confirmed 730290895 PLAN OF TREATMENT Pending Test Test Name [...] Start Date Coverage End Date MEDICARE OF [place] [address] [place] [address] [id number] GALDINO BOLTON Self - patient is the insured FOR LIFE [address] [place] [address] [id number] GALDINO BOLTON Self - patient is the insured MEDICAL (GENERAL) HISTORY Medical History History ICD Code kidney stones acid reflux Patient denies heart issues, lung issues ,diabetes. Surgical History Surgery Date(Month/Year) Kidney Stones 1978 hysterectomy 2000 hernia repair 1983 cholecystectomy 2020
== END 2024-04-18 10:51 | disposition home or self-care (01) ==
PROVIDERS: PCP Internal Medicine
DX: H61.22 Impacted cerumen, left ear (principal)

== ENCOUNTER → 2024-04-18 10:15 | Outpatient (BNVA) | payer MEDICARE, OTHER, SELFPAY | PROVIDERS: PCP Internal Medicine | DX: H61.23 Impacted cerumen, bilateral (principal) | CPT/HCPCS: 69210; 99212 ==

== ENCOUNTER 2024-05-16 10:57 | Outpatient (REF) | payer MEDICARE, OTHER, SELFPAY ==
--- NOTE | ~2024-05-16 | MM_ITS ---
EXAMINATION: DXA BONE DENSITY AXIAL HISTORY: Estrogen deficiency TECHNIQUE: [employer] Dual energy absorptiometry (DEXA) of the lumbar spine, total left hip, and femoral neck was performed. COMPARISON: There are no prior studies for comparison. FINDINGS: The bone mineral density of the lumbar spine is 1.058 with a T-score of -0.9, and a Z-score of 0.9. The bone mineral density of the left total hip is 0.941 with a T-score of -0.5, and a Z-score of 1.1. The bone mineral density of the left femoral neck is 0.919 with a T-score of -0.9, and a Z-score of 0.9. MM/XR DEXA axial skeleton IMPRESSION: Based on bone mineral density, and according to World Health Organization (WHO) criteria, the diagnosis is consistent with normal bone mineral density. All bone density values are in grams per centimeter squared (g/cm2). Statistically, 68% of repeat scans fall within 1 SD (+/- 0.010 g/cm2 for AP spine L1-L4) and 1 SD (+/- 0.012 g/cm2 for femur total) FRAX is a trademark of the [employer]'s [employer] [facility] [employer], a World Health Organization (WHO) Collaborating Center. Electronically signed by: Brando Garcia MD 05/16/2024 12:44 PM [facility]
--- NOTE | ~2024-05-16 | MM_ITS ---
EXAMINATION: MM SCREENING DIGITAL BREAST TOMOSYNTHESIS, BILATERAL CLINICAL INFORMATION: Screening. Asymptomatic. COMPARISON: Mammography: Comparison is made with available priors TECHNIQUE: Digital breast mammography with tomosynthesis is performed in both the craniocaudal and mediolateral oblique views along with computer-aided detection (CAD). FINDINGS: There are scattered areas of fibroglandular density (ACR BI-RADS breast composition Category b). Scattered asymmetries are stable. There are no significant masses, abnormal calcifications, or other abnormalities. MM/MM tomosynthesis screening BI IMPRESSION: No mammographic evidence of malignancy. ASSESSMENT: BI-RADS BI-RADS 2 - Benign Findings RECOMMENDATION: Routine annual mammography screening. 1 year F/U This examination should not preclude the clinical evaluation of a suspicious palpable abnormality. This patient's information was entered into a reminder system with a target due date for their next mammogram. Electronically signed by: Avril Hill DO 05/20/2024 04:28 PM [facility]
--- OUTSIDE RECORDS SUMMARY | 2024-05-16 13:43 | XMS_ITS | Patient Health Record ---
Author Organization [facility] Address [address] [place] [address] Care Team Providers Care Photogrammetric Surveyor Name Role Phone Ivette Wang MD Primary [...] findings of blood chemistry (R79.89) Active confirmed 157100501 Problem Abnormal liver function tests (R79.89) Active confirmed 137282247 Problem Gastroesophageal reflux disease, unspecified whether esophagitis present (K21.9) Active confirmed 188862106 Problem Colonoscopy refused (Z53.20) Active confirmed 730815383190192 Problem Abnormal LFTs (R79.89) Active confirmed 856513588 PLAN OF TREATMENT Pending Test Test Name Order Date LIVER PROFILE 06/24/2020 LIVER PROFILE 09/04/2021 LIVER PROFILE 12/02/2020 LIVER PROFILE 03/05/2021 LIVER PROFILE 06/11/2020 GGT 05/29/2021 GGT 06/24/2020 GGT 09/04/2021 GGT 03/05/2021 CBC w/o DIFF 09/04/2021 US ABD 06/17/2020 Liver Panel 05/29/2021 Liver Fibrosis Pnl 09/04/2021 Insurance Providers Payer Name Payer Address Payer Phone Subscriber Number Group Number Insured Name Patient Relationship to Insured Coverage Start Date Coverage End Date MEDICARE OF [place] [address] [place] [address] [id number] GALDINO BOLTON Self - patient is the insured FOR LIFE [address] [place] [address] [id number] GALDINO BOLTON Self - patient is the insured MEDICAL (GENERAL) HISTORY Medical History History ICD Code kidney stones acid reflux Patient denies heart issues, lung issues ,diabetes. Surgical History Surgery Date(Month/Year) Kidney Stones 1978 hysterectomy 2000 hernia repair 1983 cholecystectomy 2020
== END 2024-05-16 10:58 | disposition home or self-care (01) ==
LOC: HO.MAMMO 10:57
PROVIDERS: PCP Internal Medicine; Visit Provider Internal Medicine
DX: Z12.31 Encounter for screening mammogram for malignant neoplasm of breast (principal); M81.0 Age-related osteoporosis without current pathological fracture
CPT/HCPCS: 77063; 77067; 77080

== ENCOUNTER → 2024-05-16 11:30 | Outpatient (BNV) | payer MEDICARE, OTHER, SELFPAY | PROVIDERS: PCP Internal Medicine; Visit Provider Radiology Diagnostic Radiology | DX: Z12.31 Encounter for screening mammogram for malignant neoplasm of breast (principal) | CPT/HCPCS: 77063; 77067 ==